=== PATIENT | female | born 1950 | race Caucasian/White ===

== ENCOUNTER → 2019-08-26 13:38 | Outpatient (CLI) | payer MEDICARE, SELFPAY ==
--- NOTE | ~2019-08-26 | XR_ITS ---
EXAMINATION: XR chest 2V EXAM DATE: 08/26/2019 13:53 INDICATION: Cough for 2 weeks. TECHNIQUE: Frontal and lateral projections of the chest obtained and reviewed. Comparison is made to prior examination from 03/12/2017. FINDINGS: Severe chronic hyperinflation. There is a dual lead pacemaker/AICD seen with leads project ing over the expected locations of the right atrial appendage and right ventricle. Previously seen ri t vicente catheter has been removed. The lungs are clear. There are no pleural effusions. The cardi omediastinal silhouette is within normal limits. There is no pneumothorax suspected. The bones and soft tissues are unremarkable. IMPRESSION: 1. No acute cardiopulmonary findings. 2. Hyperinflation. Reviewed, dictated and finalized at location A. HOUSE OPERATOR
== END ==
PROVIDERS: PCP Family Medicine; Visit Provider Physician Assistant
DX: R05 Cough (principal)
CPT/HCPCS: 71046

== ENCOUNTER 2020-01-16 09:57 | Outpatient (CLI) | payer MEDICARE, SELFPAY ==
--- NOTE | ~2020-01-16 | DEXA_ITS ---
Bone Density Report Name: Jaki Zaidi Age: 69 Sex: Female Ethnicity: White Date of : 1950 Indication: osteopenia; height loss; history of glucocorticoids; prior fracture; cancer; hysterectomy; rheumatoid arthritis; Referring Provider: DIDI DICKINSON Study: Bone densitometry was performed. Exam Date: January 16, 2020 Accession number: [id number] Bone Density: Region BMD T-score Z-score Classification AP Spine (L1-L4) 0.929 -1.1 0.9 Osteopenia Femoral Neck (Left) 0.536 -2.8 -1.1 Osteoporosis Total Hip (Left) 0.662 -2.3 -0.9 Osteopenia Total Hip Bilateral Avg 0.669 -2.3 -0.8 Osteopenia Femoral Neck (Right) 0.557 -2.6 -0.9 Osteoporosis Total Hip (Right) 0.675 -2.2 -0.8 Osteopenia World Health Organization criteria for BMD impression classify patients as: Normal (T-score at or above -1.0), Osteopenia (T-score between -1.0 and -2.5), or Osteoporosis (T-score at or below -2.5). 10-year Fracture Risk: FRAX not reported because: Some T-score for Spine Total or Hip Total or Femoral Neck at or below -2.5 Previous Exams: Region Exam Age BMD T-score BMD Change BMD Change Date g/cm2 vs Baseline vs Previous AP Spine(L1-L4) 01/16/2020 69 0.929 -1.1 -0.045(-4.6%)* -0.045(-4.6%)* 10/08/2014 64 0.974 -0.7 Total Hip(Left) 01/16/2020 69 0.662 -2.3 -0.118(-15.1%) -0.118(-15.1%) 10/08/2014 64 0.780 -1.3 Total Hip(Right) 01/16/2020 69 0.675 -2.2 -0.082(-10.9%) -0.082(-10.9%) 10/08/2014 64 0.757 -1.5 *Denotes significance at 95% confidence level, LSC for AP Spine = 0.022 g/cm2, LSC for Total Hip = 0.027 g/cm2 Clinical Information Provided by Patient: Has had a low trauma fracture Has taken Glucocorticoids Has rheumatoid arthritis Has used the following medications: Vitamin D, Calcium Has the following medical conditions: Cancer, Hysterectomy Patient maximum height was 63 Menopause Age: 36 Drinks caffeinated beverages Onset of menses at age 11 Number of children 3 Impression: The patient has established osteoporosis, based on the Left Femoral Neck T-score and the existence of a prior fracture. The patient has risk factors, including: previous fracture, history of glucocorticoid therapy. The BMD for the AP Spine(L1-L4) decreased, changing by -4.6% since the last DXA exam. The BMD for the Total Hip(Left) decreased, changing by -15.1% since the last DXA exam. The BMD for the Total Hip(Right) decreased, changing by -10.9% since the last DXA exam. Disc
== END 2020-01-16 09:58 | disposition home or self-care (01) ==
PROVIDERS: PCP Family Medicine; Visit Provider Physician Assistant
DX: Z78.0 Asymptomatic menopausal state (principal); M85.88 Other specified disorders of bone density and structure, other site; M85.852 Other specified disorders of bone density and structure, left thigh; M85.851 Other specified disorders of bone density and structure, right thigh; M81.0 Age-related osteoporosis without current pathological fracture
CPT/HCPCS: 77080

== ENCOUNTER 2020-05-09 11:47 | Inpatient (IN) | payer MEDICARE, SELFPAY ==
[2020-05-09] VITALS (14 sets, daily range): BP systolic 130–153; BP diastolic 60–81; PULSE 60–91; RESP 14–22; TEMP 36.2–36.9; O2SAT 95–100; BMI 23.2
--- NOTE | ~2020-05-09 | CT_ITS ---
EXAMINATION: CT brain wo con INDICATION: Transient alteration of awareness COMPARISON: None TECHNIQUE: Standard unenhanced head CT. The dose-length product (DLP) was 605.33 mGy-cm. The mA was a djusted according to patient size. Iterative reconstruction technique was employed. FINDINGS: There is no acute intraparenchymal hemorrhage. No evidence of mass lesion. No evidence of a cute infarction. There is mild periventricular and subcortical hypodensity probably related to small vessel ischemic disease. There is mild prominence of the sulci and ventricles related to cerebral atr ophy. Intracranial calcified cerebral atherosclerosis is noted. There are no extra-axial collections. There is no mass effect or midline shift. The orbits and soft tissues are unremarkable. The visuali zed sinuses and mastoid air cells are well aerated. IMPRESSION: 1. No acute intracranial abnormality. 2. Age related findings. Reviewed, dictated and finalized at location A.
--- NOTE | ~2020-05-09 | US_ITS ---
EXAMINATION: US carotid duplex BI DATE: 05/11/2020 12:07 INDICATION: Syncope. Cerebral atherosclerosis. TECHNIQUE: Grayscale, color Doppler, and pulsed Doppler images of the cervical carotid arteries were obtained. The degree of vessel stenosis is placed in one of the following categories: normal, <50%, 5 0-69%, >=70% but less than near-occlusion, near-occlusion, or total occlusion. Note that percent sten osis relative to normal distal artery lumen diameter is indirectly measured from velocity measurement s as described by Ben, et al. Radiology 2003; [id number]:[id number]. COMPARISON: None. FINDINGS: RIGHT: The right common carotid artery (CCA) peak systolic velocity (PSV) is 86 cm/s. The right internal car otid artery (ICA) PSV is 115 cm/s. The right ICA end-diastolic velocity (EDV) is 29 cm/s. The right I CA/CCA PSV ratio is 1.3. Grayscale and color Doppler images yield an estimate of <50% diameter reduct ion from plaque in the ICA. The external carotid artery (ECA) PSV is 80 cm/s. There is antegrade flow in the right vertebral artery. LEFT: The left CCA PSV is 68 cm/s. The left ICA PSV is 97 cm/s. The left ICA EDV is 41 cm/s. The left ICA/C CA PSV ratio is 1.4. Grayscale and color Doppler images yield an estimate of <50% diameter reduction from plaque in the ICA. The ECA PSV is 62 cm/s. There is antegrade flow in the left vertebral artery. IMPRESSION: 1. <50% stenosis in the right internal carotid artery. 2. <50% stenosis in the left internal carotid artery. Reviewed, dictated and finalized at location A. GRAINER
--- NOTE | ~2020-05-09 | XR_ITS ---
EXAMINATION: XR chest 1V INDICATION: Shortness of breath TECHNIQUE: AP view of the chest is obtained. COMPARISON: 08/26/2019 FINDINGS: Cardiomegaly is noted. A dual-lead cardiac pacemaker of the left chest wall ends with leads in expected locations. The lungs are free of acute opacities. There is no pleural effusion or pneumo thorax. IMPRESSION: 1. Cardiomegaly. Reviewed, dictated and finalized at location A. IMPRESSION: 1. Cardiomegaly.
--- NOTE | 2020-05-09 12:15 | ED.SEIZURE ---
HPI - Seizure General Chief Complaint: Seizure Stated Complaint: SEIZURE LIKE ACTIVITY Time Seen by Provider: 05/09/20 12:01 History of Present Illness HPI Narrative: 69 yo female with multiple medical problems brought in from home for LOC. She was sitting on the toilet when she began to feel weak. She lowered her self t the floor and says she does not rememebr what happened after that. Apparently her witnessed what he thought might be seizure activity. When EMS arrived they noted that she was conscious, but treated her for a seizure with 2 doses of versed. Symptoms stopped. No post ictal confusion. She says that she has nt been feeling well recently, but she is not able to tell me how this is different from usual. Related Data Home Medications Medication Instructions Recorded Confirmed aspirin 81 mg tablet,delayed 81 mg PO DAILY 07/30/19 09/03/19 release betamethasone dipropionate 0.05 % 1 applic TOPICAL DAILY 07/30/19 09/03/19 topical ointment ergocalciferol (vitamin D2) 1,000 unit PO 07/30/19 09/03/19 unit capsule ferrous sulfate 325 mg (65 mg 325 mg PO DAILY 07/30/19 09/03/19 iron) tablet vitamin B complex 1 cap PO DAILY 07/30/19 09/03/19 hydroxychloroquine 200 mg tablet 200 mg PO BID 11/13/19 Allergies Allergy/AdvReac Type Severity Reaction Status Date / Time latex Allergy Intermediate hives and Verified 05/09/20 12:06 rash Penicillins Allergy Unknown Nausea and Verified 05/09/20 12:06 Vomiting Sulfa (Sulfonamide Allergy Unknown Nausea and Verified 05/09/20 12:06 Antibiotics) Vomiting sulfanilamide Allergy Unknown Nausea and Verified 05/09/20 12:06 Vomiting Review of Systems Constitutional: Constitutional: Reports fatigue, Denies fever(s) and Reports weakness Cardiovascular: Cardiovascular: Denies chest pain Respiratory: Respiratory: Denies dyspnea Gastrointestinal: Gastrointestinal: Reports abdominal pain, Reports diarrhea and Reports nausea Genitourinary: Genitourinary: Denies dysuria Neurologic: Reports dizziness and Reports weakness PMFSH Past Medical History Medical History COPD (chronic obstructive pulmonary disease) COPD exacerbation SHERRY (generalized anxiety disorder) MARTIN (iron deficiency anemia) Pancreatic cancer Sinus node dysfunction Surgical History Surgical History History of pancreatic surgery s/p Whipple Family History Family History Mother Family history of malignant neoplasm of ovary Other Diabetes mellitus Social History Social History Smoking status: Never smoker Second hand tobacco smoke exposure: No Alcohol intake: current Drinks per week: 2 Substance use: never Substance use type: does not use Gender identity (if verbalized by the patient): Female Exam Const: General: no acute distress and alert Orientation/consciousness: patient oriented x3 HENMT: Head: normal to inspection Resp: Effort & Inspection: normal respiratory effort Auscultation: clear to auscultation bilaterally Cardio: Rate: regular rate Rhythm: regular rhythm GI: GI Palp: Yes Soft to palpation and Yes Tenderness to palpation present (GI) Skin: General skin exam: normal color Neuro: General: patient oriented x3, moves all extremities, no focal motor deficits and CN's II-XI intact bilaterally Speech: normal speech Extrem: General: normal to inspection and no edema Course Vital Signs Vital signs: Vital Signs Temperature 36.2 C L 05/09/20 11:46 Pulse Rate 67 05/09/20 11:46 Respiratory Rate 18 05/09/20 11:46 Blood Pressure 151/81 H 05/09/20 11:46 Pulse Oximetry 100 05/09/20 11:46 Temperature 36.2 C L 05/09/20 11:46 Pulse Rate 69 05/09/20 13:40 Respiratory Rate 19 05/09/20 13:40 B
[2020-05-09] MEDS: SODIUM CHLORIDE 0.9% IV 1,000 ML 999 ML IV CONT (12:23)
--- NOTE | 2020-05-09 12:30 | PC.NURSE ---
Patient refusing straight cath at this time, states I don't have to pee.
[2020-05-09 12:53] LABS: Basophils Percent Auto 0.4 % (0.2-1.2); Eosinophils Absolute Auto 0.1 K/mm3 (0-0.3); Hematocrit 31.9 % (37.0-47.0); Hemoglobin 9.8 g/dL (12.0-15.0); Immature Granulocyte Absolute 0.02 K/mm3 (0.00-0.031); Immature Granulocyte Percent A 0.4 % (0-0.5); Lymphocytes Absolute Auto 0.68 K/mm3 (0.9-3.2); Lymphocytes Percent Auto 14.1 % (18.3-44.2); Mean Corpuscular HGB Conc 30.7 g/dl (32-36); Mean Corpuscular Hemoglobin 27.7 pg (26-34); Mean Corpuscular Volume 90.1 fl (80-100); Monocytes Absolute Auto 0.4 K/mm3 (0.1-0.6); Monocytes Percent Auto 8.9 % (2.6-8.5); Neutrophils Absolute Auto 3.6 K/mm3 (1.3-6.7); Neutrophils Percent Auto 75.2 % (45.5-73.1); Platelet Count Result 158 k/mm3 (150-375); Red Blood Count 3.54 M/mm3 (4.2-5.4); Red Cell Distribution Width 14.8 % (11.5-14.5); White Blood Count 4.8 K/mm3 (4.5-10.0)
[2020-05-09 13:03] LABS: INR 0.9; Prothrombin Time 12.3 Seconds (11.1-14.7)
[2020-05-09 13:04] LABS: Partial Thromboplastin Time 23.7 SECONDS (22.3-36.8)
[2020-05-09 13:06] LABS: Lactic Acid Reflex 3.5 mmol/L (0.7-2.1)
[2020-05-09 13:08] LABS: Alanine Aminotransferase 29 U/L (4-35); Alkaline Phosphatase 46 U/L (38-126); Anion Gap 9 mmol/L (8-16); Aspartate Amino Transferase 35 U/L (14-36); Bilirubin,Total 0.2 mg/dL (0.2-1.3); Blood Urea Nitrogen 18 mg/dL (7-17); Calcium 8.8 mg/dL (8.4-10.2); Carbon Dioxide 28 mmol/L (22-30); Chloride 105 mmol/L (98-107); Estimated CRCL calculation 60 ml/min; Estimated Glomerular Filt Rate > 60; Glucose 136 mg/dL (65-105); Sodium 142 mmol/L (137-145)
--- NOTE | 2020-05-09 13:21 | ECG_ITS ---
Measurements Intervals [place] Rate: 73 P: 160 ND: 180 QRS: 81 QRSD: 99 T: 67 QT: 410 QTc: 453 Interpretive Statements ELECTRONIC ATRIAL PACEMAKER BORDERLINE T WAVE ABNORMALITY- ANTERIOR LEADS BASELINE ARTIFACT- I, II, III, AVR, AVL, AVF, V3-V6 BORDERLINE ECG Electronically Signed On 05-09-2020 13:52:37 CDT by Jacob Encinas D.O.
--- NOTE | 2020-05-09 13:24 | PC.NURSE ---
CALLED TO PATIENTS ROOM VIA FAMILY MEMBER, PATIENT NOTED TO BE HAVING INVOLUNTARY CONVULSION. DR FONG AT BEDSIDE WITH NO NEW ORDERS AT THIS TIME.
--- NOTE | 2020-05-09 14:00 | PM.IMHP ---
H&P: HPI History of Present Illness Date/Time: 05/09/20 14:00 Chief complaint: Seizure-like activity. Narrative: Jaki Zaidi is a 69-year-old female with history of lupus, rheumatoid arthritis, mixed connective tissue disorder, history of pancreatic cancer status post Whipple procedure in 2015, COPD, and anemia who presented to the emergency department earlier today via EMS from home for evaluation of seizure-like activity. Over the last couple of weeks she has felt ?blah? but it sounds as though this is not an unusual thing for her given her autoimmune diseases. She ate breakfast as usual and not long thereafter she had the sudden urge to have a bowel movement. While in the bathroom she passed a loose stool which she states is pretty common for her after eating, but she then began feeling nauseated, diaphoretic and lightheaded. She yelled to her for help, and he helped her onto the floor as she thought she was going to pass out. According to her she then lost consciousness and was noted to have shaking of her upper and lower extremities. It sounds as though Narcan was given on EMS arrival without response. She was given Versed in the ambulance x2 and the seizure activity ceased. In total since this seizure-like activity lasted for approximately 17 minutes. She was not postictal, incontinent, and there was no tongue bite. On 's arrival to the ER, she was alert and oriented x4. She then drifted off to sleep, however sometime during her sleep she reportedly had the same type of seizure-like activity lasting for 3 minutes, again without a postictal state. At the time my evaluation she just feels tired and worn out. She describes a dull aching headache and she has muscle tightness in her shoulders, other than that she has no complaints. She has no history of seizures. She denies significant caffeine and alcohol intake. The only change in medications recently was a decrease in her daily prednisone dose. She denies insomnia and lack of sleep. No head trauma or loss of consciousness. Review of Systems Review of Systems: Narrative: Twelve systems were reviewed with pertinent positives and negatives as per HPI. No vertigo or dizziness. She denies focal weakness and paresthesias. No acute auditory or visual changes. Does have maturing cataracts for which she is followed by an heavy rail train operator. She frequently has rhinorrhea when eating. No cold or flu symptoms. She occasionally has chills and sweats which is not new for her, but she denies head running a fever. Occasional GERD for which she will take famotidine. No cough or shortness of breath. She denies sick contacts. She has diarrhea pretty frequently after eating and has since her Whipple 5 years ago. No blood or mucus in the stool. Except as documented, all other systems were reviewed and are negative. [facility] Past Medical History Medical History (Updated 05/09/20 @ 19:11 by Laura Proctor PA-C) Anxiety Cardiomegaly Chronic obstructive pulmonary disease Iron deficiency anemia Mixed connective tissue disease Osteoporosis Pancreatic cancer Status post Whipple procedure in 2014. Rheumatoid arthritis Sinus node dysfunction Status post pacemaker insertion in February 2019. Systemic lupus erythematosus Surgical History Surgical History (Updated 05/09/20 @ 19:11 by Laura Proctor PA-C) History of bilateral salpingo-oophorectomy (~1997) History of cardiac catheterization (~09/2018) Performed after an abnormal stress test, showing minimal coronary irregularities. History of cardiac pacemaker in situ (~02/2019) History of cholecystectomy (~2014) History of hysterectomy (~1986) History of pancreatic surgery (~2014) Status post Whipple procedure. Family History Family History (Updated 05/09/20 @ 19:06 by Laura Proctor PA-C) Mother Family history of malignant neoplasm of ovary Son Diabetes mellitus Grandparent Diabetes mellitus Son Multiple
--- NOTE | 2020-05-09 15:45 | ADMGEN ---
This patient, Jaki Zaidi, was admitted to Medical Room 247-. Patient/family oriented to hospital policies and general routines including ID bracelet, bed and alarms, visiting hours, pain management, procedures, bathroom and other care routines, personal items, smoking policy, room service/diet, and visiting hours. Information on how to activate the Rapid Response Team has been discussed. Patient/Family are encouraged to report perceived risks to care and to ask questions if they do not understand what they are told or what they should do.
[2020-05-09 15:50] LABS: Reflex Lactic Acid Yes or No Add Lactic
[2020-05-09 16:58] LABS: Lactic Acid Reflex 0.6 mmol/L (0.7-2.1)
[2020-05-09 17:37] LABS: Add Urine Microscopic? YES; Appearance Urine Clear (Clear); Bacteria Urine Trace /hpf; Bilirubin Urine Negative (Negative); Blood Urine Negative (Negative); Color Urine Yellow (Yellow); Glucose Urine UA Negative (Negative); Ketones Urine Negative (Negative); Leukocyte Esterase Ur Trace LEU/UL (Negative); Mucus Urine Rare /lpf; Nitrate Urine Negative (Negative); Protein Urine Negative (Negative); RBC Urine 0-2 /hpf (0-2); Specific Grav Ur 1.012 (1.001-1.035); Squamous Epithelial Cell Urine Rare /hpf (Few); Urobilinogen Urine Negative mg/dL (<2.0)
[2020-05-09] MEDS: LACTATED RINGERS 1,000 ML 60 ML IV CONT (18:13)
[2020-05-09] MEDS: ACETAMINOPHEN 325 MG TABLET 650 MG PO (21:06)
[2020-05-09] MEDS: HYDROXYCHLOROQUINE SULFATE 200 MG TABLET PO (21:07)
[2020-05-10] VITALS (13 sets, daily range): BP systolic 130–156; BP diastolic 60–79; PULSE 60–72; RESP 14–16; TEMP 36.6–37.2; O2SAT 98–100
--- NOTE | 2020-05-10 01:59 | PC.NURSE ---
Daylight Savings Time For Daylight Savings Time Ending in the Fall - Clocks are moved back. For Daylight Savings Time Beginning in the Spring - Clocks are moved ahead. For [facility], the time of change occurs at 0200 hrs. Time is taken from the hot mill observer. This entry on the patient's chart recognizes the change in time reflected during documentation. Example: 2 entries for vital signs may be charted for 0200 hrs.
[2020-05-10 05:37] LABS: Hematocrit 30.2 % (37.0-47.0); Hemoglobin 9.4 g/dL (12.0-15.0); Mean Corpuscular HGB Conc 31.1 g/dl (32-36); Mean Corpuscular Hemoglobin 27.6 pg (26-34); Mean Corpuscular Volume 88.8 fl (80-100); Mean Platelet Volume 9.7 fl (7.4-10.4); Platelet Count Result 152 k/mm3 (150-375); Red Cell Distribution Width 14.9 % (11.5-14.5)
[2020-05-10] MEDS: ACETAMINOPHEN 325 MG TABLET 650 MG PO ×3 (06:00→20:35)
[2020-05-10 06:13] LABS: Alanine Aminotransferase 26 U/L (4-35); Albumin Level 3.5 g/dL (3.5-5.1); Alkaline Phosphatase 46 U/L (38-126); Anion Gap 2 mmol/L (8-16); Aspartate Amino Transferase 34 U/L (14-36); Bilirubin,Total 0.3 mg/dL (0.2-1.3); Blood Urea Nitrogen 10 mg/dL (7-17); Calcium 8.7 mg/dL (8.4-10.2); Carbon Dioxide 33 mmol/L (22-30); Chloride 105 mmol/L (98-107); Estimated CRCL calculation 68 ml/min; Estimated Glomerular Filt Rate > 60; Glucose 98 mg/dL (65-105); Magnesium 2.2 mg/dL (1.6-2.3); Potassium 3.8 mmol/L (3.4-5.0); Sodium 140 mmol/L (137-145)
[2020-05-10] MEDS: ASPIRIN 81 MG CHEWABLE TABLET PO (09:29)
[2020-05-10] MEDS: busPIRone HCL 2.5 MG TABLET PO (09:30)
[2020-05-10] MEDS: CHOLECALCIFEROL 1,000 UNITS TABLET 2000 UNITS PO (09:31)
[2020-05-10] MEDS: busPIRone HCL 5 MG TABLET PO (09:31)
[2020-05-10] MEDS: predniSONE 5 MG TABLET PO (09:32)
[2020-05-10] MEDS: HYDROXYCHLOROQUINE SULFATE 200 MG TABLET PO ×2 (09:32→16:57)
[2020-05-10] MEDS: FERROUS SULFATE 324 MG TABLET PO (09:32)
[2020-05-10] MEDS: ROSUVASTATIN 5 MG TABLET PO (09:32)
[2020-05-10] MEDS: VITAMIN B COMPLEX CAPSULE 1 CAP PO (09:32)
--- NOTE | 2020-05-10 10:19 | WPDNEURCNPN ---
Assessment and Plan Assessment and plan (1) Vasovagal episode: Code(s): R55 - Syncope and collapse Status: Acute Additional Plan vasovagal syncope with seizure-like activity will obtain the EEG in the meantime management continue as such Consult date: 05/10/20 Time Seen: 10:00 HPI: Jaki Zaidi is a 69 year old female Admitted to the [facility] through the emergency room via EMS for the evaluation of seizure-like activity. reportedly patient has not felt well over the last couple of weeks, she ate breakfast as usual and not long thereafter she had the sudden urge to have a bowel movements, while in the bathroom she passed a loose stool then began feeling nauseated, diaphoretic, lightheaded and called her to help who help her onto the floor. At the time she became unconscious and was noted to have shaking of her upper and lower extremities. she receive Narcan by the EMS on arrival without any response. Received Versed in the ambulance x2, and the seizure-like activity ceased the whole episode lasted for about 17 minutes .there was no history of postictal state, incontinence of bladder or tongue biting. by the time her came to the emergency room she was awake alert oriented x4 and then drifted off to sleep but however sometime during her sleep she reportedly had the same type of seizure-like activity lasting for 3 minutes. patient has ongoing history of lupus, rheumatoid arthritis, mixed connective tissue disorder, pancreatic cancer for which she has undergone Whipple procedure in 2014, COPD, and anemia. Review of Systems Review of Systems: All systems reviewed & are unremarkable except as noted in HPI and below PMFSH Past Medical History Medical History (Updated 05/09/20 @ 19:11 by Laura Proctor PA-C) Anxiety Cardiomegaly Chronic obstructive pulmonary disease Iron deficiency anemia Mixed connective tissue disease Osteoporosis Pancreatic cancer Status post Whipple procedure in 2014. Rheumatoid arthritis Sinus node dysfunction Status post pacemaker insertion in February 2019. Systemic lupus erythematosus Surgical History Surgical History (Updated 05/09/20 @ 19:11 by Laura Proctor PA-C) History of bilateral salpingo-oophorectomy (~1997) History of cardiac catheterization (~09/2018) Performed after an abnormal stress test, showing minimal coronary irregularities. History of cardiac pacemaker in situ (~02/2019) History of cholecystectomy (~2014) History of hysterectomy (~1986) History of pancreatic surgery (~2014) Status post Whipple procedure. Family History Family History (Updated 05/09/20 @ 19:06 by Laura Proctor PA-C) Mother Family history of malignant neoplasm of ovary Son Diabetes mellitus Grandparent Diabetes mellitus Son Multiple sclerosis Social History Social History (Updated 05/09/20 @ 19:07 by Laura Proctor PA-C) Social History: Surrogate decision maker: Rafael Zaidi, spouse. Code status: Full code. Smoking status: Never smoker Second hand tobacco smoke exposure: Yes ( for many years) Alcohol intake: current Drinks per week: 2 Substance use: never Substance use type: does not use Additional living arrangements comments: Resides in [place] with her . She has 3 grown children. Additional occupation/education comments: Retired and on disability. Gender identity (if verbalized by the patient): Female Spiritual care concerns: No Meds Home Medications and Allergies Home Medications Medication Instructions Recorded Confirmed Type betamethasone dipropionate 0.05 % 1 applic TOPICAL DAILY PRN 07/30/19 05/09/20 History topical ointment ferrous sulfate 325 mg (65 mg 325 mg PO DAILY 07/30/19 05/09/20 History iron) tablet vitamin B complex 1 cap PO DAILY 07/30/19 05/09/20 History albuterol sulfate 90 mcg/actuation 2 puff INHALATION Q4H PRN #6.7 gm 08/06/19 05/09/20 Rx aerosol i
--- NOTE | 2020-05-10 12:20 | PHAR ---
HOME MEDICATION VERIFIED BY PHARMACY: JOSE LUIS FITZGERALD 100/62.5 MCG INHALER
--- NOTE | 2020-05-10 16:04 | PM.IMPN ---
Progress Note: A&P Assessment and Plan (1) Vasovagal episode: Code(s): R55 - Syncope and collapse Status: Acute Assessment and Plan: vasovagal syncope with seizure-like activity Neurologist was consulted EEG ordered. Unable to get an MRI, due to PPM. Continous cardiac telemetry monitoring. Consulted her Assistant Facility Manager DR. Gates, as her orthostatics did drop some, perhaps a Pacemaker interrogation would give us some clue as to willay she had syncope with collapse. electrolytes stable, Mag 2.2, K 3.8 Na 140 (2) Pancreatic cancer: Code(s): C25.9 - Malignant neoplasm of pancreas, unspecified Status: Acute Assessment and Plan: history of a whipple w/pancreatic cancer approximately 5 years ago chronic loose stools since then BM x 3 today. CBC stable. WBC 3, Hgb 9.4, Hct. 30.2 LFTs are WNL. (3) Lactic acidosis: Code(s): E87.2 - Acidosis Status: Acute Assessment and Plan: resolved Additional Plan Subjective Date/time seen: 05/10/20 16:04 Jaki was resting in bed comfortably. Stated that she was feeling better than when she was admitted. She has been having some loose stools; 3 x today. She has a history of a whipple w/pancreatic cancer approximately 5 years ago. LFTs are WNL. Neurologist was consulted , EEG ordered. Unable to get an MRI, due to PPM. Continous cardiac telemetry monitoring. Consulted her Assistant Facility Manager DR. Gates, as her orthostatics did drop some, and perhaps a Pacemaker interrogation would give us some clue as to willay she had syncope with collapse. Review of Systems Review of Systems: All systems reviewed & are unremarkable except as noted in HPI and below Constitutional: Constitutional: Reports fatigue, Denies fever(s) and Reports weakness Eyes: Eyes: Denies exophthalmos, Denies diplopia, Denies floaters and Denies loss of peripheral vision ENT: Reports dizziness Cardiovascular: Cardiovascular: Denies chest pain and Denies dyspnea Respiratory: Respiratory: Denies dyspnea Gastrointestinal: Gastrointestinal: Reports abdominal pain, Reports diarrhea and Reports nausea Genitourinary: Genitourinary: Denies dysuria Neurologic: Reports dizziness and Reports weakness Endocrine: Endocrine: Reports fatigue Exam Narrative: Exam Narrative: no obvious acute distress head normocephalic with no cranial bruit. Nose throat examination normal. Neck is supple with no cervical bruit no thyromegaly no lymphadenopathy. Heart regular with no murmur. Lungs clear to auscultation with no rhonchi or crepitation. Abdomen is soft with no organomegaly nontender normal bowel sounds. Skin normal. Extremities normal. Neurological examination revealed her to be awake alert oriented x3 symmetrical tongue midline motor examination revealed her to have no drift no evidence of sensory or cerebellar deficit Const: General: no acute distress and alert Orientation/consciousness: patient oriented x3 HENMT: Head: normal to inspection Resp: Effort & Inspection: normal respiratory effort Auscultation: clear to auscultation bilaterally Cardio: Rate: regular rate Rhythm: regular rhythm Skin: General skin exam: normal color Neuro: General: patient oriented x3, moves all extremities, no focal motor deficits and CN's II-XI intact bilaterally Speech: normal speech Extrem: General: normal to inspection and no edema Objective Data Vital Signs Vital Signs: Vital Signs - 24 hr 05/09/20 20:00 05/09/20 21:39 05/09/20 21:40 Temperature 36.8 C 36.8 C 36.8 C Pulse Rate 64 60 63 Respiratory Rate 16 16 18 Blood Pressure 139/64 139/64 130/60 Pulse Oximetry 97 95 100 05/09/20 21:42 05/10/20 00:00 05/10/20 04:00 Temperature 36.8 C Pulse Rate 62 60 61 Respiratory Rate 16 Blood Pressure 148/63 H Pulse Oximetry 98 05/10/20 06:00 05/10/20 08:00 05/10/20 08:05 Temperature 36.6 C Pulse Rate 61 60 62 Respiratory Rate 14 Blood Pressure
[2020-05-11] VITALS (15 sets, daily range): BP systolic 123–148; BP diastolic 45–74; PULSE 60–73; RESP 16–20; TEMP 36.4–37.1; O2SAT 100
--- NOTE | 2020-05-11 | ECHO_ITS ---
Patient Info Name: Jaki Zaidi Age: 69 years : 1950 Gender: Female Ht: 61 in Wt: 122 lbs BSA: 1.55 m2 HR: 61 bpm BP: 137 / 74 mmHg Heart Rhythm: Sinus Rhythm Technical Quality: Good Exam Date: 05/11/2020 11:03 AM Exam Location: [facility] Pulmonary Exam Room: 247 Patient Status: Outpatient Admit Date: 05/09/2020 Staff Ordering Physician: Laura Proctor PA-C Founder Chairman And Chief Creative Officer: Jackelyn Morgan RDCS Attending Provider: Bev Sun NP Referring Physician: Esthela HODGES; Exam Type: CA echo doppler color flow Study Info Indications - PPM CM Complete two-dimensional, color flow and Doppler transthoracic echocardiogram is performed. Strain analysis performed. Summary 1. Complete two-dimensional, color flow and Doppler transthoracic echocardiogram is performed. 2. Strain analysis performed. 3. Left ventricular chamber dimension is normal. 4. Left ventricular systolic function is normal, estimated at 55-60%. 5. There is no increased left ventricular wall thickness. 6. The left ventricular diastolic function is grade I diastolic dysfunction. 7. Global longitudinal strain is normal at -19 %. 8. Left atrial chamber dimension is mildly enlarged. 9. Patent foramen ovale visualized by color flow imaging. 10. There is mild to moderate aortic valve regurgitation. 11. There is mild mitral valve regurgitation. 12. There is mild tricuspid valve regurgitation. 13. Mild pulmonary hypertension, estimated pulmonary arterial systolic pressure is 44 mmHg. 14. There is small pericardial effusion. Left Ventricle Left ventricular chamber dimension is normal. Left ventricular systolic function is normal, estimated at 55-60%. There is no increased left ventricular wall thickness. The left ventricular diastolic function is grade I diastolic dysfunction. Global longitudinal strain is normal at -19 %. Right Ventricle Right ventricular chamber dimension is normal. Right ventricular systolic function is normal. Left Atria Left atrial chamber dimension is mildly enlarged. Right Atria Right atrial chamber dimension is normal. Atrial Septum Patent foramen ovale visualized by color flow imaging. Aortic Valve The aortic valve is trileaflet. There is mild aortic valve sclerosis. There is no aortic valve stenosis. There is mild to moderate aortic valve regurgitation. Pulmonic Valve The pulmonic valve is normal. There is no pulmonic valve stenosis. There is trace pulmonic regurgitation. Mitral Valve The mitral valve has normal leaflets. There is no mitral valve stenosis. There is mild mitral valve regurgitation. Tricuspid Valve The tricuspid valve leaflets are normal. There is no significant tricuspid valve stenosis. There is mild tricuspid valve regurgitation. Mild pulmonary hypertension, estimated pulmonary arterial systolic pressure is 44 mmHg. Pericardium/Pleural The pericardium appears normal. There is small pericardial effusion. Inferior Vena Cava Normal inferior vena cava with >50% collapse upon inspiration consistent with normal right atrial pressure, 5 mmHg. Aorta The aortic root size at the sinus of Valsalva is normal. Left Ventricular Outflow Tract Name Value Normal LVOT 2D
[2020-05-11] MEDS: ROSUVASTATIN 5 MG TABLET PO (08:26)
[2020-05-11] MEDS: CHOLECALCIFEROL 1,000 UNITS TABLET 2000 UNITS PO (08:26)
[2020-05-11] MEDS: predniSONE 5 MG TABLET PO (08:26)
[2020-05-11] MEDS: busPIRone HCL 5 MG TABLET PO (08:26)
[2020-05-11] MEDS: ASPIRIN 81 MG CHEWABLE TABLET PO (08:26)
[2020-05-11] MEDS: busPIRone HCL 2.5 MG TABLET PO (08:26)
[2020-05-11] MEDS: VITAMIN B COMPLEX CAPSULE 1 CAP PO (08:26)
[2020-05-11] MEDS: HYDROXYCHLOROQUINE SULFATE 200 MG TABLET PO ×2 (08:27→16:22)
[2020-05-11] MEDS: FERROUS SULFATE 324 MG TABLET PO (08:27)
--- NOTE | 2020-05-11 11:09 | PM.DS ---
DS: Admitting Diagnosis Admitting Diagnosis Admitting Diagnosis: Seizure-like activity. DS: Summary Time Spent with Patient Time attestation: Total time spent providing and/or coordinating discharge services: Discharge Plan Discharge Consulting providers: Riky Cantu ; Wood Gates Patient Instructions: Pain Management (DC), New-Onset Seizure in Adults (DC) Discharge Medications: No Action albuterol sulfate [Ventolin HFA] 90 mcg/actuation HFA aerosol inhaler 2 puff INHALATION Q4H PRN (Reason: shortness of breath or wheezing) Qty: 6.7 RF: 2 hydroxychloroquine 200 mg tablet 200 mg PO BID RF: 0 betamethasone dipropionate 0.05 % ointment 1 applic TOPICAL DAILY PRN (Reason: Rash) RF: 0 vitamin B complex [Vitamins B Complex] Capsule 1 cap PO DAILY RF: 0 ferrous sulfate [Iron (ferrous sulfate)] 325 mg (65 mg iron) tablet 325 mg PO DAILY RF: 0 Adult Low Dose Aspirin 81 mg Tablet 81 mg PO DAILY RF: 0 citalopram 40 mg tablet 40 mg PO HS RF: 0 buspirone 7.5 mg tablet 7.5 mg PO DAILY RF: 0 cholecalciferol (vitamin D3) 50 mcg (2,000 unit) Capsule 50 mcg PO DAILY RF: 0 prednisone 5 mg tablet 5 mg PO DAILY RF: 0 rosuvastatin 5 mg Tablet 5 mg PO DAILY RF: 0 Trelegy Ellipta 100-62.5-25 mcg blister with device 1 inhalation INHALATION DAILY Qty: 60 RF: 5 alendronate 70 mg tablet 70 mg PO WEEKLY Qty: 12 RF: 1 Date of admission: 05/09/20 14:00 Primary Care Provider: Jordan Hayward Admitting Provider: Lalito Gomes Attending physician on admission: Bev Sun Condition: Stable Quality VTE Prophylaxis VTE prophylaxis: mechanical ordered
--- NOTE | 2020-05-11 11:22 | PM.CNCAR ---
Assessment and Plan Assessment and plan (1) Syncope: Code(s): R55 - Syncope and collapse Status: Acute Assessment and Plan: in my opinion this is clearly a vasovagal episode. She was became diaphoretic, nauseated and lightheaded while going to the bathroom. This is similar to her previous episode. This is likely related to vasodepressor response. There is likely nothing wrong with her device. Will formally interrogate her pacemaker for arrhythmia but I sincerely doubt she has any significant arrhythmic episode causing her event. I also Doubt it was a seizure. echocardiogram is pending. Will review. Encourage fluids. Patient has an MRI compatible pacemaker. She CAN have an MRI if thought necessary. (2) Vasovagal episode: Code(s): R55 - Syncope and collapse Status: Acute (3) Sinus node dysfunction: Code(s): I49.5 - Sick sinus syndrome Status: Acute Assessment and Plan: Status post Medtronic device. Likely discharge later today History of Present Illness History of Present Illness Consult date/time: 05/11/20 11:22 Requesting physician: Bev Sun NP Consult reason: Other (Syncope) Reason For Visit: Seizure-like activity. Narrative: date of service 05/11/2020 Reason for consultation syncope History: Patient is a 69-year-old female with a history of vasovagal syncope. She also has a complicated past history including pancreatic cancer status post Whipple procedure in 2014, lupus, rheumatoid arthritis, mixed connective tissue disease. I have been seeing her for a couple of years and it was found that she had significant chronotropic incompetence. She did undergo permanent pacemaker implantation with a Medtronic device on 02/13/2019. She had been feeling well from a cardiac perspective since that time without any other exertional intolerance is or dizzy spells. She however did have a state of altered mental status on 1030. She states that she was feeling a little weak. She had eaten breakfast and went to the bathroom shortly thereafter. She did have some diarrhea /loose stools. Shortly thereafter she became nauseated, diaphoretic, lightheaded. This felt like her previous symptoms of vasovagal syncope. She yelled out to her who came to the bathroom and helped her down to the floor. Shortly thereafter she started to have significant shaking of her upper arms. The patient remembers the shaking though. She denies any chest pain, paroxysmal nocturnal dyspnea, orthopnea, edema, palpitations. She was treated for seizure-like activity in the ambulance. She supposedly had another episode in the emergency department but no intervention was performed. Review of Systems Review of Systems: All systems reviewed & are unremarkable except as noted in HPI and below Constitutional: Constitutional: Reports fatigue, Reports lethargy and Reports weakness Eyes: Eyes: Denies blurry vision ENT: Reports Normal hearing present Cardiovascular: Cardiovascular: Reports chest pain Respiratory: Respiratory: Denies dyspnea Gastrointestinal: Gastrointestinal: Denies abdominal pain and Reports diarrhea Genitourinary: Genitourinary: Denies flank pain Musculoskeletal: Musculoskeletal: Denies neck pain Integumentary/Breasts: Skin/Breast: Denies dry skin Neurologic: Denies headache(s) and Denies numbness Psychiatric: Psychiatric: Denies anxiety and Denies confusion Endocrine: Endocrine: Denies excessive sweating Hematologic/Lymphatic: Hematologic/Lymphatic: Denies easy bleeding Allergic/Immunologic: Allergic/Immunologic: Denies GI upset with certain foods PMFSH Past Medical History Medical History Anxiety Cardiomegaly Chronic obstructive pulmonary disease Iron deficiency anemia Mixed connective tissue disease Osteoporosis Pancreatic cancer Status post Whipple procedure in 2015. Rheumatoid arthritis
[2020-05-11 11:46] LABS: Hemoglobin A1C 5.2 % (<5.7)
[2020-05-11] MEDS: levETIRAcetam 1000MG/NACL100ML 1,000 MG/100 ML BAG 400 MG IVPB (14:19)
--- NOTE | 2020-05-11 15:09 | PC.NURSE ---
Patient had seizure like activity starting at 1359 per Anna from neurology while patient was receiving her EEG. I arrived to the room at 1402. Dr. Cantu called and orders receive for IV Keppra. EEG continued. She had tremors intermittently and her right side was rigid. She said she could hear us but not respond . She did answer questions when asked. Her hands were numb bilaterally at first and then just occurred with her left hand. Post possible seizure activity patient was still alert and oriented but said she felt very tired. Josefina Styles called me back at 1438 and she was notified about the situation and interventions that occurred.
--- NOTE | 2020-05-11 16:22 | PM.IMPN ---
Progress Note: A&P Assessment and Plan (1) Vasovagal episode: Code(s): R55 - Syncope and collapse Status: Acute Assessment and Plan: vasovagal syncope with seizure-like activity on Monday, patient reported almost having a similar episode before that in springtime when she was struggling to get her grandchid out of a child swing seat, she got that flushed near syncope feeling and stopped struggling to lift the child, and feeling resolved after resting. Neurologist was consulted. EEG ordered. Unable to get an MRI, due to PPM. Continous cardiac telemetry monitoring. Consulted her Auto Damage Insurance Appraiser DR. Gates, as her orthostatics did drop some initially, then repeat orthostats today were stable. perhaps a Pacemaker interrogation would give us some clue as to why she had syncope with collapse. ordered carotid doppler studies electrolytes stable, Mag 2.2, K 3.8 Na 140 (2) Pancreatic cancer: Code(s): C25.9 - Malignant neoplasm of pancreas, unspecified Status: Acute Assessment and Plan: history of a whipple w/pancreatic cancer approximately 5 years ago chronic loose stools since then BM x 2-3 most days CBC stable. WBC 3, Hgb 9.4, Hct. 30.2 LFTs are WNL. (3) Lactic acidosis: Code(s): E87.2 - Acidosis Status: Acute Assessment and Plan: lactic 3.5 then 0.6 resolved Additional Plan Subjective Date/time seen: 05/11/20 16:22 Jaki was sitting up in her chair this morning when I went to examine and speak with her. She was feeling well, alert and oriented x4. Her last known seizure was Monday, with no further s/s seizure. She remembered that she gets a flushed and warm feeling down her body prior to the seizure activity on Monday. Her EEG is pending. Will order a carotid Doppler study today. Order neuro checks Q shift. Appreciate the neurology and cardiology recommendations. She is currently not on Keppra; will have to see what the EEG shows and Neurologist recommendations. Her orthostatic BPs/HR this morning were stable with SBPs 120s and HR 60s. She is anxious to go home today. I told her we would first have to see what the EEG and US show, as well as specialists recommendations. Review of Systems Review of Systems: All systems reviewed & are unremarkable except as noted in HPI and below Constitutional: Constitutional: Reports as per HPI, Denies body ache(s), Denies chills, Denies fever(s), Denies frequent falls, Denies headache(s) and Denies malaise Eyes: Eyes: Reports as per HPI, Denies exophthalmos, Denies diplopia, Denies floaters and Denies loss of peripheral vision ENT: Reports as per HPI and Reports dizziness Cardiovascular: Cardiovascular: Reports as per HPI, Denies chest pain, Denies chest pain at rest, Denies chest pain with activity, Denies dyspnea and Reports other (PPM in place) Comments: feeling a warm flushed sensation prior to syncope Respiratory: Respiratory: Reports as per HPI, Denies chest congestion, Denies cough, Denies pain with cough, Denies dyspnea and Denies wheezing Gastrointestinal: Gastrointestinal: Reports as per HPI, Reports abdominal pain, Denies belching, Denies melena, Reports diarrhea and Reports nausea Genitourinary: Genitourinary: Reports as per HPI and Denies dysuria Musculoskeletal: Musculoskeletal: Reports as per HPI and Reports muscle weakness Integumentary/Breasts: Skin/Breast: Reports as per HPI Neurologic: Reports as per HPI, Reports dizziness and Reports weakness Psychiatric: Psychiatric: Reports as per HPI Endocrine: Endocrine: Reports as per HPI and Reports fatigue Hematologic/Lymphatic: Hematologic/Lymphatic: Reports as per HPI Allergic/Immunologic: Allergic/Immunologic: Reports as per HPI Exam Const: General: cooperative, comfortable, no acute distress and alert; No anxious Orientation/consciousness: patient oriented x3 HENMT: Head: normal to inspection Resp: Effort & Inspection: normal respirat
--- NOTE | 2020-05-11 16:46 | P.NEURO_ITS ---
Neurology EEG Report General Information Date of Study: 05/11/20 TEST eeg DIAGNOSIS seizures CONDITION OF RECORDING Awake and drowsy EEG NUMBER [id number] CLINICAL HISTORY seizure-like activity EEG DESCRIPTION basic resting occipital frequency consists of large amount of low to medium voltage 11 to 13 hertz per second alpha activity admixed with low-voltage 15 to 18 hertz per second beta activity. multiple movement artifacts seen throughout t he tracing.during Drowsiness low-voltage beta activity seen diffusely admixed with waxing and waning posterior alpha rhythm and intermittent 6 to 7 hertz per second theta activity non paroxysmal,non focal, non lateralizing. IMPRESSION no significant abnormalities noted
[2020-05-11] MEDS: levETIRAcetam 500 MG TABLET PO (20:36)
[2020-05-12] VITALS (10 sets, daily range): BP systolic 121–138; BP diastolic 63–70; PULSE 61–71; RESP 16; TEMP 36.3–36.8; O2SAT 99–100
[2020-05-12] MEDS: FERROUS SULFATE 324 MG TABLET PO (09:13)
[2020-05-12] MEDS: HYDROXYCHLOROQUINE SULFATE 200 MG TABLET PO ×2 (09:13→16:18)
[2020-05-12] MEDS: levETIRAcetam 500 MG TABLET PO (09:13)
[2020-05-12] MEDS: predniSONE 5 MG TABLET PO (09:13)
[2020-05-12] MEDS: ROSUVASTATIN 5 MG TABLET PO (09:13)
[2020-05-12] MEDS: VITAMIN B COMPLEX CAPSULE 1 CAP PO (09:13)
[2020-05-12] MEDS: ASPIRIN 81 MG CHEWABLE TABLET PO (09:13)
[2020-05-12] MEDS: CHOLECALCIFEROL 1,000 UNITS TABLET 2000 UNITS PO (09:13)
[2020-05-12] MEDS: busPIRone HCL 2.5 MG TABLET PO (09:13)
[2020-05-12] MEDS: busPIRone HCL 5 MG TABLET PO (09:13)
[2020-05-12] MEDS: ACETAMINOPHEN 325 MG TABLET 650 MG PO (09:16)
--- NOTE | 2020-05-12 10:02 | WPDNEUROPN ---
Progress Note: A&P Assessment and Plan (1) Syncope: Code(s): R55 - Syncope and collapse Status: Acute Additional Plan stable continue the treatment as such as planned Review of Systems Review of Systems: All systems reviewed & are unremarkable except as noted in HPI and below Exam Narrative: Exam Narrative: on examination she continues to be awake alert in no obvious acute distress head normocephalic ear nose throat examination normal neck supple with no cervical bruit no thyromegaly no lymphadenopathy heart regular with no murmur lungs clear with no rhonchi or crepitations abdomen is soft nontender no organomegaly and neuro examination reveals her to be awake alert follows instructions fairly well his speech nor dysphasic no dysarthric not dysphonic cranial nerve examination is normal examination reveals generally decreased strength but no focal motor deficit Objective Data Vital Signs Vital Signs: Vital Signs - 24 hr 05/11/20 12:00 05/11/20 14:15 05/11/20 16:00 Temperature 36.7 C Pulse Rate 72 73 64 Respiratory Rate 20 Blood Pressure 148/74 H Pulse Oximetry 100 05/11/20 20:00 05/11/20 21:58 05/11/20 21:59 Temperature 36.6 C Pulse Rate 60 Respiratory Rate 16 Blood Pressure 129/63 130/58 L 134/64 Pulse Oximetry 100 05/11/20 22:00 05/12/20 00:11 05/12/20 04:06 Temperature 36.6 C Pulse Rate 60 62 66 Respiratory Rate 16 Blood Pressure 129/63 Pulse Oximetry 100 05/12/20 06:00 05/12/20 09:15 05/12/20 09:17 Temperature 36.4 C 36.3 C L Pulse Rate 61 71 67 Respiratory Rate 16 16 Blood Pressure 125/67 138/68 123/64 Pulse Oximetry 99 100 05/12/20 09:19 Temperature Pulse Rate 66 Respiratory Rate Blood Pressure 134/70 Pulse Oximetry Intake/Output Intake/Output: Intake & Output 05/10/20 05/10/20 05/11/20 05/12/20 00:59 23:59 23:59 23:59 Intake Total 1770 590 Output Total 1600 600 Balance 170 -10 Meds/Results Medications: Active Medications Generic Name Dose Route Start Last Admin Trade Name Freq PRN Reason Stop Dose Admin Acetaminophen 650 mg 05/09/20 21:02 05/12/20 09:16 Acetaminophen 325 Mg Tablet PO 650 mg Q4H PRN Administration Pain Albuterol 2 puff 05/09/20 19:17 Albuterol Sulfate (*Sp) Aerosol 1 Puff INHALATION Q4HRT PRN shortness of breath or wheezing Aspirin 81 mg 05/10/20 09:00 05/12/20 09:13 Aspirin 81 Mg Chewable Tablet PO 06/09/20 09:01 81 mg DAILY CORA Administration Buspirone HCl 2.5 mg 05/10/20 09:00 05/12/20 09:13 Buspirone Hcl 2.5 Mg Tablet PO 06/09/20 09:01 2.5 mg DAILY CORA Administration Buspirone HCl 5 mg 05/10/20 09:00 05/12/20 09:13 Buspirone Hcl 5 Mg Tablet PO 5 mg DAILY CORA Administration Citalopram Hydrobromide 40 mg 05/09/20 21:00 Citalopram Hydrobromide 20 Mg Tablet PO HS [facility] Ferrous Sulfate 324 mg 05/10/20 09:00 05/12/20 09:13 Ferrous Sulfate 324 Mg Tablet PO 324 mg DAILY CORA Administration Hydroxychloroquine Sulfate 200 mg 05/09/20 17:00 05/12/20 09:13 Hydroxychloroquine Sulfate 200 Mg Tablet PO 200 mg BID CORA Administration Levetiracetam 500 mg 05/11/20 21:00 05/12/20 09:13 Levetiracetam 500 Mg Tablet PO 500 mg Q12HR CORA Administration Prednisone 5 mg 05/10/20 09:00 05/12/20 09:13 Prednisone 5 Mg Tablet PO 5 mg DAILY CORA Administration Rosuvastatin Calcium 5 mg 05/10/20 09:00 05/12/20 09:13 Rosuvastatin 5 Mg Tablet PO 5 mg DAILY CORA Administration Vitamin B Complex 1 cap 05/10/20 09:00 05/12/20 09:13 Vitamin B Complex Capsule PO 1 cap DAILY CORA Administration Vitamin D 2,000 units 05/10/20 09:00 05/12/20 09:13 Cholecalciferol 1,000 Units Tablet PO 2,000 units DAILY CORA Administration Radiology Results: ITS Impressions Head CT 05/09/20 12:35 IMPRESSION: 1. No acute intracranial abnormality. 2. Age related findings. Chest X
--- NOTE | 2020-05-12 11:33 | PM.PNCARD ---
Progress Note: A&P Assessment and Plan (1) Syncope: Qualifiers: Syncope type: vasovagal syncope Qualified Code(s): R55 - Syncope and collapse Code(s): R55 - Syncope and collapse Status: Acute Assessment and Plan: Vasovagal episode. She was became diaphoretic, nauseated and lightheaded while going to the bathroom. This is similar to her previous episode. This is likely related to vasodepressor response. A [employer]tr[employer] remote transmission was sent 05/11/2020. Her pacemaker is functioning normally as programmed. There were no arrhythmias. Patient has an MRI compatible pacemaker. She CAN have an MRI if thought necessary. May need to be done at [place] as it cannot be done at [place]. (2) Vasovagal episode: Code(s): R55 - Syncope and collapse Status: Acute Assessment and Plan: As above (3) Sinus node dysfunction: Code(s): I49.5 - Sick sinus syndrome Status: Acute Assessment and Plan: Pacemaker functioning normally as above. Additional Plan Seizure activity during EEG yesterday. No arrhythmias noted on the monitor. OK to discharge from cardiac standpoint. See discharge instructions for follow-up. Plan discussed with Dr. Gates [id number] 05/12/2020 Subjective Date/time seen: 05/12/20 11:33 Interval history: Follow-up for: Vasovagal syncope, sick sinus syndrome, MRI compatible pacemaker Date of service: 05/12/2020 Subjective: Denied chest discomfort or shortness of breath. No lightheadedness. Had nausea this morning after medications. Had some seizure activity during EEG that was read as unremarkable. Review of Systems Constitutional: Constitutional: Denies excessive sweating, Reports fatigue and Denies headache(s) Eyes: Eyes: Denies blurry vision ENT: Reports Normal hearing present, Denies headache(s) and Denies neck pain Cardiovascular: Cardiovascular: Denies chest pain and Denies dyspnea Respiratory: Respiratory: Denies dyspnea Gastrointestinal: Gastrointestinal: Denies abdominal pain and Reports nausea Genitourinary: Genitourinary: Denies flank pain Musculoskeletal: Musculoskeletal: Denies neck pain and Denies numbness Integumentary/Breasts: Skin/Breast: Denies dry skin Neurologic: Reports Normal hearing present, Denies confusion, Denies headache(s), Denies numbness and Reports weakness Psychiatric: Psychiatric: Denies anxiety and Denies confusion Endocrine: Endocrine: Denies excessive sweating and Reports fatigue Hematologic/Lymphatic: Hematologic/Lymphatic: Denies easy bleeding Allergic/Immunologic: Allergic/Immunologic: Denies GI upset with certain foods Exam Narrative: Exam Narrative: Awake, alert, oriented. No distress. at bedside. Const: General: comfortable and no acute distress; No confusion Orientation/consciousness: No confusion HENMT: General nose exam: Normal nares present Eyes: Sclera: sclerae normal Neck: Neck: supple and no JVD Resp: Auscultation: clear to auscultation bilaterally Cardio: Rate: regular rate Rhythm: regular rhythm GI: GI Palp: Yes Soft to palpation Auscultation: normal bowel sounds Skin: General skin exam: normal color Neuro: General: No confusion Cranial nerves: Yes Normal hearing present Cognition (Neuro): normal cognition Speech: normal speech Extrem: General: normal to inspection Psych: Affect: normal affect Objective Data Vital Signs Vital Signs: Vital Signs - 24 hr 05/11/20 12:00 05/11/20 14:15 05/11/20 16:00 Temperature 36.7 C Pulse Rate 72 73 64 Respiratory Rate 20 Blood Pressure 148/74 H Pulse Oximetry 100 05/11/20 20:00 05/11/20 21:58 05/11/20 21:59 Temperature 36.6 C Pulse Rate 60 Respiratory Rate 16 Blood Pressure 129/63 130/58 L 134/64 Pulse Oximetry 100 05/11/20 22:00 05/12/20 00:11 05/12/20 04:06 Temperature
--- NOTE | 2020-05-12 16:07 | PM.DS ---
DS: Admitting Diagnosis Admitting Diagnosis Admitting Diagnosis: Seizure-like activity. DS: Discharge Diagnosis Discharge Diagnosis (1) Seizure-like activity: Code(s): R56.9 - Unspecified convulsions Status: Acute Assessment and Plan: Discharge Summary (Date of service 05/12/20): Mrs. Zaidi is a 69 y.o. female with PMH significant for COPD, pancreatic cancer s/p Whipple procedure in 2014, systemic lupus erythematosus, rheumatoid arthritis, and COPD who presented to the emergency department for the evaluation of syncopal episode and seizure-like activity. She reported that she ate breakfast and subsequently had the urge to have a bowel movement. She had a loose stool and subsequently felt nauseous, diaphoretic, and lightheaded. She called for her to help because she felt the urge to pass out. The patient reportedly had seizure-like activity per her with shaking of the upper and lower extremities. She was given versed in the ambulance x2 and the seizure activity ceased. She was brought to the emergency department via EMS. She had no post-ictal confusion, urinary or bowel incontinence, or tongue biting. She reportedly had another episode in the ER. Initial workup in the emergency department included CT brain which showed no evidence of acute intracranial abnormality and age-related findings. Lactic acid was elevated at 3.5. She has chronic anemia and Hb was 9.8 and Hct 31.9. She had a subsequent episode of the seizure-like activity Monday at 1359 during her EEG. She had tremors of the right side with rigidity and reportedly was still alert but unable to respond. Dr. Cantu with neurology was called and ordered IV keppra and recommended PO keppra. EEG was continued. The EEG was read by neurology as no significant abnormalities. There were multiple motion artifacts noted. The activity was non-paroxysmal, non-focal, and non-lateralizing. MRI was recommended for further evaluation but could not be performed here since she has a pacemaker. Her pacemaker is MRI compatible so I discussed that she can have this done at an institution that will perform MRI with pacemaker since it cannot be done at [place]. She was advised to follow-up with Dr. Cantu to have this accomplished. She will need close neurology follow-up. She was advised that she cannot drive due to concern for seizures. (2) Syncope: Qualifiers: Syncope type: vasovagal syncope Qualified Code(s): R55 - Syncope and collapse Code(s): R55 - Syncope and collapse Status: Acute Assessment and Plan: Syncope appeared to be vasovagal with precipitating diaphoresis, nausea, and lightheadedness while going to the bathroom. She had a similar episode prior. Cardiology and neurology were consulted. Pacemaker interrogation was performed and was functioning normally as programmed. She had no evidence of arrhythmias. Echocardiogram was performed and showed normal LV systolic function of 55-60%, grade I diastolic dysfunction, mild left atrial enlargement, patent foramen ovale, mild to moderate aortic valve regurgitation, mild mitral valve regurgitation, mild tricuspid regurgitation, and mild pulmonary hypertension with pressure 44mmHg and small pericardial effusion. Carotid doppler US showed <50% stenosis of the ICA bilaterally. Telemetry was monitored and showed paced sinus rhythm. Cardiology recommend outpatient follow-up. Fall precautions were advised and neurology treated her with keppra due to concern for seizures. (3) Vasovagal episode: Code(s): R55 - Syncope and collapse Status: Acute Assessment and Plan: As above. (4) Pancreatic cancer: Code(s): C25.9 - Malignant neoplasm of pancreas, unspecified Status: Chronic Assessment and Plan: She reports a hx of a pancreatic cancer s/p Whipple approximately 5 years ago. She has chronic loose stools since then. She will need to continue follow-up outpatient wi
== END 2020-05-12 16:40 | disposition home or self-care (01) | DRG 101 ==
LOC: ANHED 14:24 → ANH2MED 14:55
PROVIDERS: Nurse Practitioner; Physician Assistant; Admitting Provider Internal Medicine; Emergency Provider Emergency Medicine; PCP Family Medicine; Visit Provider Physician Assistant
DX: R56.9 Unspecified convulsions (principal); E87.2 Acidosis; M35.1 Other overlap syndromes; R55 Syncope and collapse; J44.9 Chronic obstructive pulmonary disease, unspecified; F41.1 Generalized anxiety disorder; D50.9 Iron deficiency anemia, unspecified; M06.9 Rheumatoid arthritis, unspecified; M32.9 Systemic lupus erythematosus, unspecified; M81.0 Age-related osteoporosis without current pathological fracture; Z85.07 Personal history of malignant neoplasm of pancreas; R03.0 Elevated blood-pressure reading, without diagnosis of hypertension; Z90.49 Acquired absence of other specified parts of digestive tract; Z90.710 Acquired absence of both cervix and uterus; Z90.722 Acquired absence of ovaries, bilateral; Z90.79 Acquired absence of other genital organ(s); Z95.0 Presence of cardiac pacemaker
CPT/HCPCS: 36415; 70450; 71045; 80053; 81001; 83036; 83605; 83735; 84443; 85025; 85027; 85610; 85730; 93005; 93306; 93880; 95816; 96360; 96361; 96374; 97161; 97165; 99285; A9270; G0378; J1953; J7030; J7120; J7512

== ENCOUNTER 2021-01-29 10:45 | Outpatient (CLI) | payer MEDICARE, SELFPAY ==
--- NOTE | ~2021-01-29 | CT_ITS ---
EXAMINATION: CT abdomen pelvis wo/w con DATE: 01/29/2021 11:23 INDICATION: Generalized abdominal pain. Nausea, constipation, diarrhea History of pancreatic cancer. TECHNIQUE: Computed tomography (CT) of the abdomen and pelvis was performed with 100 cc Omnipaque 350 intravenous contrast. Automated exposure control and iterative reconstruction technique were employe d. Exam dose: 443.46 mGy-cm total exam DLP. COMPARISON: 06/25/2015 Limited abdominal ultrasound 05/14/2012 CTA abdomen pelvis FINDINGS: Pacemaker lead in right ventricular apex. Heart size appears within normal range. No perica rdial or pleural effusion. The lung bases are clear of infiltrate or consolidation. There is postoperative change from Whipple procedure (pancreaticoduodenotomy). The gallbladder appears to be absent. No bile duct or pancreatic duct dilatation. No hepatic, splenic, pancreatic, and adrenal or renal space-occupying mass lesion is detected. There is atherosclerotic calcification of the abdominal aorta and iliac arteries but no abdominal aor tic aneurysm. No intraperitoneal or retroperitoneal or pelvic mass lesion or adenopathy or ascites is evident. There is mild colonic diverticulosis; no CT evidence of diverticulitis. No bowel obstruction is evide nt. There is degenerative change at the apophyseal joints with associated grade 1 anterolisthesis at L4-5 . There is severe degenerative disc disease at L5-S1. Diffuse osteopenia. No suspicious osteolytic or osteoblastic lesions are identified. IMPRESSION: Status post Whipple procedure for pancreatic cancer Mild colonic diverticulosis; no CT evidence of diverticulitis Reviewed, dictated and finalized at [facility]. Reviewed, dictated and finalized at location [facility].
== END 2021-01-29 10:46 | disposition home or self-care (01) ==
PROVIDERS: PCP Family Medicine; Visit Provider Nurse Practitioner Family
DX: R10.9 Unspecified abdominal pain (principal); Z85.07 Personal history of malignant neoplasm of pancreas; K92.1 Melena; D64.9 Anemia, unspecified; Z90.49 Acquired absence of other specified parts of digestive tract; K57.90 Diverticulosis of intestine, part unspecified, without perforation or abscess without bleeding
CPT/HCPCS: 74178; Q9967

== ENCOUNTER → 2021-05-28 02:40 | Outpatient (CLI) | payer MEDICARE, SELFPAY ==
[2021-05-28 16:36] LABS: SARS-CoV-2 RNA PCR Negative
== END ==
PROVIDERS: PCP Family Medicine; Visit Provider Nurse Practitioner Family
DX: R68.89 Other general symptoms and signs (principal); Z20.822 Contact with and (suspected) exposure to COVID-19
CPT/HCPCS: C9803; U0003; U0005

== ENCOUNTER 2021-06-15 13:38 | Outpatient (CLI) | payer MEDICARE, SELFPAY ==
--- NOTE | ~2021-06-15 | XR_ITS ---
EXAMINATION: XR chest 2V DATE: 06/15/2021 14:00 INDICATION: 6 weeks of cough TECHNIQUE: PA and lateral views of the chest were obtained. COMPARISON: Chest radiograph dated 05/09/2020 FINDINGS: The lungs remain clear with no focal airspace opacities, pulmonary edema, pleural effusion or pneumot horax. The cardiomediastinal silhouette is normal. Dual lead pacemaker seen with leads projecting ove r the expected locations of the right atrium and right ventricle. IMPRESSION: 1. No acute cardiopulmonary disease. Reviewed, dictated and finalized at location [facility]. TING ENGINE OPERATOR
== END 2021-06-15 13:39 | disposition home or self-care (01) ==
PROVIDERS: PCP Family Medicine; Visit Provider Nurse Practitioner Family
DX: R05.9 Cough, unspecified (principal)
CPT/HCPCS: 71046

== ENCOUNTER 2021-07-14 08:14 | Outpatient (CLI) | payer MEDICARE, SELFPAY ==
--- NOTE | 2021-07-19 13:41 | WPDPFTINT ---
PFT Procedure Performed PFT Procedure Performed Spirometry with Pre/Post Bronchodilator Plethysmography (Lung Vol) Diffusing Cap (DLCO) Flow Vol Loop PFT Interpretation DOS: 06/13/2022 REQUESTING: TANYA Bowling REASON FOR TESTING: COPD PULMONARY FUNCTION TESTS Results are reliable and reproducible. Spirometry: FEV1 before bronchodilator shows a normal result, 118% predicted, 2.38 L. FVC is 120% predicted. The FEV1/FVC is 77%, normal. There is no change after bronchodilator. Lung volumes: Total lung capacity is 106%, normal. Residual volume 88%. RV/TLC is within normal limits. Airway resistance 55%. Diffusion: DLCO is 74%, and DLCO/VA is 80%. Flow volume loop: Normal. IMPRESSION: This full pulmonary function study shows normal spirometry without airflow obstruction, normal lung volumes with a mild diffusion impairment. Compared to a prior study on 06/23/2017, spirometry is the same, there was hyperinflation on the prior study with a total lung capacity of 123% and now this is 106%, normal. Diffusion was normal 102% and now it is decreased 74%. This may not be a significant finding. A decrease in DLCO can be seen in anemia, early interstitial lung disease and other conditions. Clinical correlation advised. Kiesha Bingham MD
== END 2021-07-14 08:15 | disposition home or self-care (01) ==
PROVIDERS: PCP Family Medicine; Visit Provider Nurse Practitioner Family
DX: J44.9 Chronic obstructive pulmonary disease, unspecified (principal)
CPT/HCPCS: 94060; 94726; 94729

== ENCOUNTER 2021-11-03 10:26 | Emergency (ER) | payer MEDICARE, SELFPAY ==
--- NOTE | ~2021-11-03 | CT_ITS ---
EXAMINATION: CT abdomen pelvis w con DATE: 11/03/2021 12:13 INDICATION: Generalized abdominal pain. TECHNIQUE: Computed tomography (CT) of the abdomen and pelvis was performed with 100 mL Omnipaque 350 intravenous contrast. Automated exposure control and iterative reconstruction technique were employe d. The dose-length product was 168.10 mGy-cm. COMPARISON: CT abdomen and pelvis 01/29/2021 FINDINGS: The visualized portions of the lung bases demonstrate mild atelectasis. No pleural effusion . The heart size is normal. No pericardial effusion. There is a left chest wall pacer with leads in t he right atrium and right ventricle. There is mild pectus excavatum. The liver is normal. There are c hanges of Whipple procedure. The spleen, adrenal glands, and kidneys are normal. There is diverticulo sis of the colon without evidence of diverticulitis. There are no dilated loops of bowel. The appendi x is normal. There are no pathologically enlarged lymph nodes. There is no free intraperitoneal fluid . There is moderate lumbar spondylosis. IMPRESSION: 1. No etiology for the patient's symptoms. Reviewed, dictated and finalized at location [facility].
[2021-11-03 10:28] VITALS: BP 124/92; PULSE 65; RESP 16; TEMP 36.5; O2SAT 100
[2021-11-03 10:57] LABS: Basophils Percent Auto 0.2 % (0.2-1.2); Eosinophils Absolute Auto 0.1 K/mm3 (0-0.3); Hematocrit 35.7 % (37.0-47.0); Hemoglobin 10.5 g/dL (12.0-15.0); Immature Granulocyte Absolute 0.02 K/mm3 (0.00-0.031); Immature Granulocyte Percent A 0.5 % (0-0.5); Lymphocytes Absolute Auto 0.93 K/mm3 (0.9-3.2); Mean Corpuscular HGB Conc 29.4 g/dl (32-36); Mean Corpuscular Hemoglobin 26.5 pg (26-34); Mean Corpuscular Volume 90.2 fl (80-100); Mean Platelet Volume 9.7 fl (7.4-10.4); Monocytes Absolute Auto 0.5 K/mm3 (0.1-0.6); Monocytes Percent Auto 11.7 % (2.6-8.5); Neutrophils Absolute Auto 2.9 K/mm3 (1.3-6.7); Neutrophils Percent Auto 64.6 % (45.5-73.1); Platelet Count Result 197 k/mm3 (150-375); Red Blood Count 3.96 M/mm3 (4.2-5.4); Red Cell Distribution Width 17.5 % (11.5-14.5); White Blood Count 4.4 K/mm3 (4.5-10.0)
[2021-11-03 11:09] VITALS: PULSE 66; RESP 18; O2SAT 98
[2021-11-03 11:11] LABS: Hypochromasia 1+ (NORMAL); Ovalocytes 1+ (NORMAL); Platelet Estimate Adequate (Adequate)
[2021-11-03 11:12] LABS: Burr Cells 1+ (NORMAL)
--- NOTE | 2021-11-03 11:15 | PC.NURSE ---
machine set up technician [facility].
[2021-11-03 11:17] LABS: Add Urine Microscopic? NO; Appearance Urine Clear (Clear); Bilirubin Urine Negative (Negative); Blood Urine Negative (Negative); Color Urine Yellow (Yellow); Glucose Urine UA Negative (Negative); Ketones Urine Negative (Negative); Leukocyte Esterase Ur Negative LEU/UL (Negative); Nitrate Urine Negative (Negative); Protein Urine Negative (Negative); Specific Grav Ur 1.016 (1.001-1.035); Urobilinogen Urine Negative mg/dL (<2.0)
[2021-11-03 11:34] LABS: Alanine Aminotransferase 20 U/L (4-35); Albumin Level 4.4 g/dL (3.5-5.1); Alkaline Phosphatase 59 U/L (38-126); Anion Gap 7 mmol/L (8-16); Aspartate Amino Transferase 29 U/L (14-36); Bilirubin,Total < 0.1 mg/dL (0.2-1.3); Blood Urea Nitrogen 14 mg/dL (7-17); Carbon Dioxide 26 mmol/L (22-30); Chloride 107 mmol/L (98-107); Estimated CRCL calculation 59 ml/min; Estimated Glomerular Filt Rate > 60; Glucose 99 mg/dL (65-110); Lipase 21 U/L (23-300); Potassium 4.5 mmol/L (3.4-5.0); Sodium 140 mmol/L (137-145)
[2021-11-03] MEDS: ONDANSETRON INJ 4 MG/2 ML VIAL IV PUSH (11:53)
[2021-11-03] MEDS: fentaNYL CITRATE INJ (*CRX) 100 MCG/2 ML VIAL 50 MCG IV PUSH (11:53)
[2021-11-03] MEDS: SODIUM CHLORIDE 0.9% IV 1,000 ML 999 ML IV CONT (11:53)
--- NOTE | 2021-11-03 12:05 | PC.NURSE ---
Pt to ct VIA stretcher
--- NOTE | 2021-11-03 12:06 | ED.ABDPAIN ---
HPI - Abdominal Pain General Chief Complaint: Abdominal Pain Stated Complaint: abd pain Time Seen by Provider: 11/03/21 11:04 Source: patient Mode of arrival: ambulatory Limitations: no limitations History of Present Illness HPI narrative: Pt is a 71 y/o female, PMHx of pancreatic cancer and cardiomyoathy, S/P pacemaker in place, presents to ED via POV with C/O diffuse abdominal cramping, nausea with dry heaves and diarrhea, several episodes each day, onset 4 days ago. She endorses chills and hot flashes but states she has checked her temperature and has not had a fever. She denies hematemesis, hematochezia or melena. She felt she might have a GI bug but denies known sick contacts, recent abx therapy or recent travel. MD elicited complaint: abdominal pain Pertinent past history: other (refer to HPI) Onset (ago): day(s) (4) Pain Consistency: intermittent Location: diffuse Severity: moderate Pain scale (0-10): 6 Radiation: none Migration to: no migration Exacerbating factors: eating Relieving factors: bowel movement Associated symptoms: nausea and diarrhea Related Data Home Medications Medication Instructions Recorded Confirmed betamethasone dipropionate 0.05 % 1 applic TOPICAL DAILY PRN 07/30/19 11/03/21 topical ointment vitamin B complex 1 cap PO DAILY 07/30/19 11/03/21 hydroxychloroquine 200 mg tablet 200 mg PO BID 11/13/19 11/03/21 aspirin 81 mg PO DAILY 05/09/20 11/03/21 cholecalciferol (vitamin D3) 50 mcg PO DAILY 05/09/20 11/03/21 ferrous sulfate 325 mg (65 mg 325 mg PO .every other day tablet 01/19/21 11/03/21 iron) tablet Allergies Allergy/AdvReac Type Severity Reaction Status Date / Time latex Allergy Intermediate hives and Verified 06/15/21 12:57 rash Penicillins Allergy Unknown Nausea and Verified 06/15/21 12:57 Vomiting Sulfa (Sulfonamide Allergy Unknown Nausea and Verified 06/15/21 12:57 Antibiotics) Vomiting sulfanilamide Allergy Unknown Nausea and Verified 06/15/21 12:57 Vomiting Review of Systems Cardiovascular: Cardiovascular: Reports no additional cardiovascular complaints Respiratory: Respiratory: Reports no additional respiratory complaints Gastrointestinal: Gastrointestinal: Reports as per [facility] Past Medical History Medical History Anxiety Cardiomegaly Chronic obstructive pulmonary disease Iron deficiency anemia Mixed connective tissue disease Osteoporosis Pancreatic cancer Status post Whipple procedure in 2014. Rheumatoid arthritis Sinus node dysfunction Status post pacemaker insertion in February 2019. Systemic lupus erythematosus Surgical History Surgical History History of bilateral salpingo-oophorectomy (~1997) History of cardiac catheterization (~09/2018) Performed after an abnormal stress test, showing minimal coronary irregularities. History of cardiac pacemaker in situ (~02/2019) History of cholecystectomy (~2014) History of hysterectomy (~1986) History of pancreatic surgery (~2014) Status post Whipple procedure. Family History Family History Mother Family history of malignant neoplasm of ovary Son Diabetes mellitus Grandparent Diabetes mellitus Son Multiple sclerosis Social History Social History Social History: Surrogate decision maker: Rafael Zaidi, spouse. Code status: Full code. Smoking status: Never smoker Second hand tobacco smoke exposure: Yes ( for many years) Alcohol intake: current Drinks per week: 2 Alcohol use details: rare Substance use: never Substance use type: does not use Additional living arrangements comments: Resides in [place] with her . She has 3 grown children. Additional occupation/education comments: Retired and on disability.
--- NOTE | 2021-11-03 12:27 | PC.NURSE ---
Pt given BSC with hat for stool sample collection.
[2021-11-03 12:46] VITALS: BP 155/72; PULSE 61; RESP 18; O2SAT 98
[2021-11-03 13:37] VITALS: BP 126/78; PULSE 78; RESP 18; O2SAT 98
[2021-11-03 14:23] VITALS: BP 122/78; PULSE 61; RESP 16; O2SAT 98
--- NOTE | 2021-11-03 14:23 | PC.NURSE ---
Pt unable to provide stool specimen during ER visit, Send home with stool cup.
== END 2021-11-03 14:24 | disposition home or self-care (01) ==
PROVIDERS: Emergency Medicine; Emergency Provider Nurse Practitioner Family; PCP Family Medicine
DX: R19.7 Diarrhea, unspecified (principal); J44.9 Chronic obstructive pulmonary disease, unspecified; D50.9 Iron deficiency anemia, unspecified; M06.9 Rheumatoid arthritis, unspecified; M81.0 Age-related osteoporosis without current pathological fracture; M32.9 Systemic lupus erythematosus, unspecified; M35.1 Other overlap syndromes; I51.7 Cardiomegaly; I42.9 Cardiomyopathy, unspecified; Z85.07 Personal history of malignant neoplasm of pancreas; Z79.82 Long term (current) use of aspirin; Z95.0 Presence of cardiac pacemaker
CPT/HCPCS: 36415; 74177; 80053; 81003; 83690; 85025; 99284; J2405; J3010; J7030; Q9967

== ENCOUNTER 2022-01-20 10:34 | Outpatient (CLI) | payer MEDICARE, SELFPAY ==
--- NOTE | ~2022-01-20 | MM_ITS ---
EXAMINATION: MM screening [facility] BI w [place] HISTORY: Screening mammogram TECHNIQUE: Craniocaudal and mediolateral oblique 3-D tomosynthesis images were obtained and synthetic 2-D images were generated. CAD analysis was submitted and interpreted. COMPARISON: 06/18/2019, 03/29/2017, 10/08/2014 BREAST PARENCHYMAL COMPOSITION: There are scattered areas of fibroglandular density. FINDINGS: There is no suspicious mass, calcification, or architectural distortion to suggest malignan cy in either breast. There has been no suspicious interval change. IMPRESSION: 1. No mammographic evidence of malignancy. 2. Recommend routine screening mammography in one year. BI-RADS Category 1: Negative Reviewed, dictated and finalized at location A.
== END 2022-01-20 10:35 | disposition home or self-care (01) ==
PROVIDERS: PCP Family Medicine; Visit Provider Physician Assistant
DX: Z12.31 Encounter for screening mammogram for malignant neoplasm of breast (principal)
CPT/HCPCS: 77063; 77067

== ENCOUNTER 2022-05-18 11:44 | Outpatient (CLI) | payer MEDICARE, SELFPAY ==
--- NOTE | ~2022-05-18 | XR_ITS ---
XR chest 2V DATE: 05/18/2022 12:10 INDICATION: Dyspnea. COPD. TECHNIQUE: PA and lateral views COMPARISON: 06/15/2021 PA and lateral chest FINDINGS: There is osteopenia. There is mild anterior wedge compression fracture deformity of a thora columbar vertebral body. Left-sided pacemaker device with leads overlying right atrium and right ventricle. Normal heart size. Aortic arch and descending thoracic aortic calcification.. Bilateral hyperinflation with increased retrosternal airspace, suggesting obstructive airways disease . No pulmonary infiltrate or consolidation, pleural effusion or pulmonary vascular congestion or pneu mothorax. IMPRESSION: Bilateral hyperinflation; no active cardiopulmonary disease Left dual-lead pacemaker Mild anterior wedge compression fracture deformity of a thoracolumbar vertebral body Reviewed, dictated and finalized at location A. JOINER
== END 2022-05-18 11:45 | disposition home or self-care (01) ==
PROVIDERS: PCP Family Medicine; Visit Provider Family Medicine
DX: R06.00 Dyspnea, unspecified (principal); Z95.0 Presence of cardiac pacemaker
CPT/HCPCS: 71046

== ENCOUNTER 2022-08-17 15:35 | Emergency (ER) | payer MEDICARE, SELFPAY ==
[2022-08-17] VITALS (23 sets, daily range): BP systolic 112–150; BP diastolic 50–96; PULSE 60–73; RESP 13–31; TEMP 36.4–36.7; O2SAT 95–100
--- NOTE | ~2022-08-17 | XR_ITS ---
EXAMINATION: XR chest 2V DATE: 08/17/2022 17:50 INDICATION: 3 days of fever with nausea, vomiting and diarrhea. TECHNIQUE: PA and lateral views of the chest were obtained. COMPARISON: Chest radiograph dated 05/18/2022 FINDINGS: The lungs are clear with no focal airspace opacities, pulmonary edema, pleural effusion or pneumothor ax. The cardiomediastinal silhouette is normal. Dual lead pacemaker seen with leads projecting over t he expected locations of the right atrium and right ventricle. Chronic L1 compression fracture. IMPRESSION: 1. No acute cardiopulmonary disease. Reviewed, dictated and finalized at location A. NICAL CABLE JOINTER
--- NOTE | ~2022-08-17 | CT_ITS ---
EXAMINATION: CT abdomen pelvis w con DATE: 08/17/2022 18:47 INDICATION: Epigastric abdominal pain. TECHNIQUE: Computed tomography (CT) of the abdomen and pelvis was performed with 100 mL Omnipaque-350 intravenous contrast. Automated exposure control and iterative reconstruction technique were employe d. The dose-length product was 196.76 mGy-cm. COMPARISON: 11/03/2021 FINDINGS: Mild atelectasis at the anterior left lower lobe. Mild pectus excavatum which impress upon the anteri or wall of the normal sized heart. No pericardial effusion. Dual-lead cardiac pacemaker with lead tip s at the apex of the right ventricle and projecting over the expected location of the right atrial ap pendage on the tire worker topogram. Whipple procedure including resection of the gallbladder, head of the pancreas, duodenum and distal stomach with pancreaticoduodenal and gastrojejunal anastomoses. Liver, spleen, bilateral adrenal glands and kidneys are normal. Normal appendix. There are few diverticula a long the sigmoid colon without adjacent inflammatory stranding to suggest diverticulitis. No bowel ob struction. Bladder is normal. The uterus is not identified and has likely been surgically resected. N o free intraperitoneal gas or fluid. No pathologically enlarged abdominal or pelvic lymphadenopathy. Chronic T12 compression fracture with 20% anterior vertebral body height loss, new since 11/03/2021 bu t present on chest radiograph dated 05/28/2022. Unchanged 5 mm anterolisthesis L4 on L5 and severe di sc height loss at L5-S1. IMPRESSION: 1. No acute intra-abdominal/pelvic process. 2. Status post Whipple procedure for reported pancreatic cancer. No evident metastatic disease. Reviewed, dictated and finalized at location A. TENANCE MACHINE REPAIRER IMPRESSION: 1. No acute intra-abdominal/pelvic process. 2. Status post Whipple procedure for reported pancreatic cancer. No evident met astatic disease.
--- NOTE | 2022-08-17 15:47 | ECG_ITS ---
Measurements Intervals [place] Rate: 71 P: 54 VA: 129 QRS: 72 QRSD: 90 T: 7 QT: 333 QTc: 362 Interpretive Statements SINUS RHYTHM NONSPECIFIC ST & T-WAVE ABNORMALITY COMPARED TO ECG 05/09/2020 11:57:04 SINUS RHYTHM NOW PRESENT T-WAVE ABNORMALITY NOW PRESENT Electronically Signed On 08-17-2022 16:20:47 TRAINING AND DEVELOPMENT ASSISTANT by Brunilda Gillis M.D.
[2022-08-17 15:59] LABS: Basophils Percent Auto 0.4 % (0.2-1.2); Eosinophils Percent Auto 0.7 % (0-4.4); Hematocrit 36.6 % (37.0-47.0); Hemoglobin 11.4 g/dL (12.0-15.0); Immature Granulocyte Absolute 0.01 K/mm3 (0.00-0.031); Immature Granulocyte Percent A 0.2 % (0-0.5); Lymphocytes Absolute Auto 0.59 K/mm3 (0.9-3.2); Lymphocytes Percent Auto 10.8 % (18.3-44.2); Mean Corpuscular HGB Conc 31.1 g/dl (32-36); Mean Corpuscular Hemoglobin 27.7 pg (26-34); Mean Corpuscular Volume 88.8 fl (80-100); Mean Platelet Volume 9.6 fl (7.4-10.4); Monocytes Absolute Auto 0.8 K/mm3 (0.1-0.6); Monocytes Percent Auto 14.3 % (2.6-8.5); Neutrophils Percent Auto 73.6 % (45.5-73.1); Platelet Count Result 167 k/mm3 (150-375); Red Blood Count 4.12 M/mm3 (4.2-5.4); Red Cell Distribution Width 15.1 % (11.5-14.5); White Blood Count 5.4 K/mm3 (4.5-10.0)
[2022-08-17 16:10] LABS: INR 0.9; Partial Thromboplastin Time 26.2 SECONDS (22.3-36.8); Prothrombin Time 12.1 Seconds (11.1-14.7)
[2022-08-17 16:13] LABS: Alanine Aminotransferase 31 U/L (6-35); Albumin Level 4.3 g/dL (3.5-5.1); Alkaline Phosphatase 63 U/L (38-126); Anion Gap 9 mmol/L (8-16); Aspartate Amino Transferase 39 U/L (14-36); Bilirubin,Total 0.5 mg/dL (0.2-1.3); Blood Urea Nitrogen 21 mg/dL (7-17); Calcium 8.6 mg/dL (8.4-10.2); Carbon Dioxide 26 mmol/L (22-30); Chloride 99 mmol/L (98-107); Estimated CRCL calculation 51 ml/min; Estimated Glomerular Filt Rate > 60; Glucose 95 mg/dL (65-110); Lipase 31 U/L (23-300); Potassium 3.4 mmol/L (3.4-5.0); Sodium 134 mmol/L (137-145)
--- NOTE | 2022-08-17 17:44 | ED.NAVMDI ---
HPI - Nausea/Vomiting/Diarrhea General Chief complaint: Nausea/Vomiting/Diarrhea Stated complaint: vomiting Time Seen by Provider: 08/17/22 17:26 History of Present Illness HPI Narrative: Patient is a 71-year-old with a history of pancreatic ca s/p whipple (2015), sinus node dysfunction s/p pacemaker (2019), lupus, here for evaluation of nausea, vomiting and diarrhea over the past 3 days. Patient states that she was at a child's birthday alliance party prior to symptom onset. Numerous reviewers have experience similar symptoms including her . Patient reports she is unable to tolerate any p.o. over the past several days and has been vomiting nonbloody emesis after every p.o. trial. She additionally notes temperatures of 100.1, sinus congestion, nonproductive cough, right ear fullness and headaches. She has been unable to keep down her home medications. She denies any unilateral weakness, visual changes, chest pain, shortness of breath, abdominal pain, dysuria, urgency or frequency. Related Data Home Medications Medication Instructions Recorded Confirmed betamethasone dipropionate 0.05 % 1 applic topical DAILY PRN Rash 07/30/19 05/18/22 topical ointment vitamin B complex (Vitamins B 1 cap PO DAILY 07/30/19 05/18/22 Complex capsule) hydroxychloroquine 200 mg tablet 200 mg PO BID 11/13/19 05/18/22 aspirin 81 mg tablet 81 mg PO DAILY 05/09/20 05/18/22 cholecalciferol (vitamin D3) 50 50 mcg PO DAILY 05/09/20 05/18/22 mcg (2,000 unit) capsule ferrous sulfate 325 mg (65 mg 325 mg PO .every other day 01/19/21 05/18/22 iron) tablet (Iron (ferrous sulfate)) Allergies Allergy/AdvReac Type Severity Reaction Status Date / Time latex Allergy Intermediate hives and Verified 08/17/22 17:34 rash Penicillins Allergy Unknown Nausea and Verified 08/17/22 17:34 Vomiting Sulfa (Sulfonamide Allergy Unknown Nausea and Verified 08/17/22 17:34 Antibiotics) Vomiting sulfanilamide Allergy Unknown Nausea and Verified 08/17/22 17:34 Vomiting Review of Systems Review of Systems: Gen: Reports fevers Eyes: Denies eye pain or visual change ENT: Reports congestion Respiratory: Reports cough CV: Denies chest pain or palpitations GI: Reports nausea, vomiting and diarrhea. Denies abdominal pain denies burning, urgency, frequency or hematuria Musculoskeletal: Denies back pain or muscle pain Neuro: Denies numbness, tingling, weakness or focal weakness Skin: Denies rash Except as documented, all other systems reviewed and negative [facility] Past Medical History Medical History Anxiety Cardiomegaly Chronic obstructive pulmonary disease Iron deficiency anemia Mixed connective tissue disease Osteoporosis Pancreatic cancer Status post Whipple procedure in 2014. Rheumatoid arthritis Sinus node dysfunction Status post pacemaker insertion in February 2019. Systemic lupus erythematosus Surgical History Surgical History History of bilateral salpingo-oophorectomy (~1997) History of cardiac catheterization (~09/2018) Performed after an abnormal stress test, showing minimal coronary irregularities. History of cardiac pacemaker in situ (~02/2019) History of cholecystectomy (~2014) History of hysterectomy (~1986) History of pancreatic surgery (~2014) Status post Whipple procedure. Family History Family History Mother Family history of malignant neoplasm of ovary Son Diabetes mellitus Grandparent Diabetes mellitus Son Multiple sclerosis Social History Social History Social History: Surrogate decision maker: Rafael Zaidi, spouse. Code status: Full code. Smoking status: Never smoker Second hand tobacco smoke exposure: Yes ( for many years) Alcohol intake: current Drinks per week: 2 Al
[2022-08-17] MEDS: LACTATED RINGERS 1,000 ML 999 ML IV CONT ×2 (17:54→18:22)
[2022-08-17] MEDS: FAMOTIDINE 20 MG/2 ML VIAL IV PUSH (17:55)
[2022-08-17] MEDS: ONDANSETRON INJ 4 MG/2 ML VIAL IV PUSH (17:55)
[2022-08-17 18:11] LABS: Appearance Urine Clear (Clear); Bilirubin Urine 2+ (Negative); Blood Urine Negative (Negative); Color Urine Yellow (Yellow); Glucose Urine UA Negative (Negative); Ketones Urine 4+ mg/dL (Negative); Leukocyte Esterase Ur Negative LEU/UL (Negative); Nitrate Urine Negative (Negative); Protein Urine 2+ mg/dL (Negative); Specific Grav Ur 1.025 (1.001-1.035); Urobilinogen Urine 0.2 mg/dL (<2.0)
[2022-08-17 18:16] LABS: Hyaline Casts Urine 30-49 /lpf; Mucus Urine Heavy /lpf; RBC Urine >75 /hpf (0-2); Squamous Epithelial Cell Urine Occasional /hpf (Few); WBC Urine 0-3 /hpf
[2022-08-17 18:17] LABS: Add Urine Microscopic? YES
[2022-08-17 18:52] LABS: Influenza A QL RT-PCR Negative (Negative); Influenza B QL RT-PCR Negative (Negative); SARS-CoV-2 RNA PCR Negative
[2022-08-17 19:34] LABS: Troponin I < 0.012 ng/mL (0.000-0.034)
[2022-08-17] MEDS: PROCHLORPERAZINE EDISYLATE 10 MG/2 ML VIAL IV PUSH (20:25)
[2022-08-18 10:38] LABS: Strep Group A RT-PCR NOT DETECTED (Negative)
== END 2022-08-17 21:15 | disposition home or self-care (01) ==
PROVIDERS: Emergency Medicine; Emergency Provider Physician Assistant; PCP Family Medicine
DX: K52.9 Noninfective gastroenteritis and colitis, unspecified (principal); Z20.822 Contact with and (suspected) exposure to COVID-19; D50.9 Iron deficiency anemia, unspecified; M32.9 Systemic lupus erythematosus, unspecified; M81.0 Age-related osteoporosis without current pathological fracture; M06.9 Rheumatoid arthritis, unspecified; F41.9 Anxiety disorder, unspecified; Z85.07 Personal history of malignant neoplasm of pancreas; Z95.0 Presence of cardiac pacemaker; Z79.82 Long term (current) use of aspirin; Z90.722 Acquired absence of ovaries, bilateral; Z90.79 Acquired absence of other genital organ(s); Z90.710 Acquired absence of both cervix and uterus; Z77.22 Contact with and (suspected) exposure to environmental tobacco smoke (acute) (chronic); R94.31 Abnormal electrocardiogram [ECG] [EKG]
CPT/HCPCS: 36415; 71046; 74177; 80053; 81001; 83690; 84484; 85025; 85610; 85730; 87636; 87651; 93005; 96361; 96374; 96375; 99284; J0780; J2405; J7120; Q9967

== ENCOUNTER 2023-10-09 10:07 | Outpatient (CLI) | payer MEDICARE, SELFPAY ==
--- NOTE | ~2023-10-09 | CT_ITS ---
EXAMINATION: CT sinus wo con DATE: 10/09/2023 11:37 INDICATION: Chronic cough. TECHNIQUE: Computed tomography (CT) of the paranasal sinuses was performed without contrast. Iterativ e reconstruction technique was employed. Exam dose: 338.00 mGy-cm total exam DLP. COMPARISON: None FINDINGS: There is rightward bowing of the nasal septum. Moderate soft tissue swelling of the nasal turbinates. Intralamellar cell of left middle nasal turbinate. The ostiomeatal units are patent. Approximate 2.4 cm polyp or mucous retention cyst at the posterior floor of the left maxillary antrum . The paranasal sinuses otherwise are normally developed and aerated, without mass density or fluid lev el. The mastoid air cells are well-developed and aerated. IMPRESSION: 2.4 cm polyp or mucous retention cyst of left maxillary sinus Mild rightward bowing of nasal septum Intralamellar cell of left middle nasal turbinate. Reviewed, dictated and finalized at [facility]. Reviewed, dictated and finalized at location B.
== END 2023-10-09 10:08 | disposition home or self-care (01) ==
LOC: ANHIMG 10:10
PROVIDERS: PCP Family Medicine; Visit Provider Otolaryngology
DX: J34.89 Other specified disorders of nose and nasal sinuses (principal); R05.3 Chronic cough; J34.1 Cyst and mucocele of nose and nasal sinus; H93.19 Tinnitus, unspecified ear; H90.3 Sensorineural hearing loss, bilateral; H53.8 Other visual disturbances; J34.2 Deviated nasal septum
CPT/HCPCS: 70486

== ENCOUNTER 2023-10-26 09:55 | Outpatient (CLI) | payer MEDICARE, SELFPAY | END 2023-10-26 09:56 | disposition home or self-care (01) | LOC: ANHAUDIO 09:56 | PROVIDERS: PCP Family Medicine; Visit Provider Otolaryngology | DX: R05.3 Chronic cough (principal); J34.89 Other specified disorders of nose and nasal sinuses; J34.1 Cyst and mucocele of nose and nasal sinus; H93.19 Tinnitus, unspecified ear; H90.3 Sensorineural hearing loss, bilateral | CPT/HCPCS: 92557; 92567 ==

== ENCOUNTER 2024-02-05 10:31 | Emergency (ER) | payer MEDICARE, SELFPAY ==
[2024-02-05 10:42] VITALS: BP 164/69; PULSE 77; RESP 18; TEMP 36.4; O2SAT 100
--- NOTE | 2024-02-05 10:57 | ED.SKABFB ---
HPI - Skin/Abscess/Foreign Bdy General Chief complaint: Skin/Abscess/Foreign Body Stated complaint: burn to rt hand Time Seen by Provider: 02/05/24 10:57 Source: patient, RN notes reviewed and old records reviewed Mode of arrival: ambulatory Limitations: no limitations History of Present Illness HPI narrative: Patient presents with complaints of burn to right hand/ wrist that occurred last night at approximately 5:30 a.m.. She spilled boiling water on the affected area. She has been applying Vaseline and taking Tylenol and ibuprofen for pain. She reports minimal relief. She denies all other injury and trauma. She does have a couple of blisters, intact, to the affected area. She retains full range of motion. Mild swelling is present Related Data Home Medications Medication Instructions Recorded Confirmed hydroxychloroquine 200 mg tablet 200 mg PO BID 11/13/19 02/05/24 aspirin 81 mg tablet 81 mg PO DAILY 05/09/20 02/05/24 prednisone 5 mg tablet 5 mg PO DAILY 11/27/23 02/05/24 mecobalamin (vitamin B12) 1,000 1,000 mcg PO DAILY 02/05/24 02/05/24 mcg chewable tablet Allergies Allergy/AdvReac Type Severity Reaction Status Date / Time latex Allergy Intermediate hives and Verified 02/05/24 11:01 rash lisinopril AdvReac Mild Cough Verified 02/05/24 11:01 Penicillins AdvReac Unknown Nausea and Verified 02/05/24 11:01 Vomiting Sulfa (Sulfonamide AdvReac Unknown Nausea and Verified 02/05/24 11:01 Antibiotics) Vomiting sulfanilamide AdvReac Unknown Nausea and Verified 02/05/24 11:01 Vomiting Review of Systems Review of Systems: All systems reviewed & are unremarkable except as noted in HPI and below Constitutional: Constitutional: Reports no additional constitutional complaints ENT: Reports system reviewed and no additional complaints, except as documented Cardiovascular: Cardiovascular: Reports no additional cardiovascular complaints Respiratory: Respiratory: Reports no additional respiratory complaints Gastrointestinal: Gastrointestinal: Reports no additional gastrointestinal complaints Integumentary/Breasts: Skin/Breast: Reports as per HPI [facility] Past Medical History Medical History Anxiety Cardiomegaly Chronic obstructive pulmonary disease HTN (hypertension) Iron deficiency anemia Lupus Mixed connective tissue disease Osteoporosis Pancreatic cancer Status post Whipple procedure in 2014. Rheumatoid arthritis Sinus node dysfunction Status post pacemaker insertion in February 2019. Systemic lupus erythematosus Surgical History Surgical History History of bilateral salpingo-oophorectomy (~1997) History of cardiac catheterization (~09/2018) Performed after an abnormal stress test, showing minimal coronary irregularities. History of cardiac pacemaker in situ (~02/2019) History of cholecystectomy (~2014) History of hysterectomy (~1986) History of pancreatic surgery (~2014) Status post Whipple procedure. Family History Family History Mother Family history of malignant neoplasm of ovary Son Diabetes mellitus Grandparent Diabetes mellitus Son Multiple sclerosis Social History Social History Social History: Surrogate decision maker: Rafael Zaidi, spouse. Code status: Full code. Smoking status: Never smoker Second hand tobacco smoke exposure: Yes ( for many years) Alcohol intake: current Drinks per week: 2 Alcohol use details: rare Substance use: never Substance use type: does not use Do You Feel Safe in your Home?: Yes Lack of Transportation: No Lack of Food: Never True Concerned About Future Housing: Decline to Answer Difficulty Paying Gas/Electric Bills: Decline to Answer Difficulty Paying for Meds: Decline to Answer C
[2024-02-05] MEDS: SILVER SULFADIAZINE 1% CR 50 GM JAR (*BKC) 1 APPLIC TOPICAL (11:21)
== END 2024-02-05 11:48 | disposition home or self-care (01) ==
PROVIDERS: Emergency Provider Nurse Practitioner Family; PCP Family Medicine
DX: T23.261A Burn of second degree of back of right hand, initial encounter (principal); T23.151A Burn of first degree of right palm, initial encounter; T23.171A Burn of first degree of right wrist, initial encounter; X11.8XXA Contact with other hot tap-water, initial encounter; J44.9 Chronic obstructive pulmonary disease, unspecified; I10 Essential (primary) hypertension; D50.9 Iron deficiency anemia, unspecified; M81.0 Age-related osteoporosis without current pathological fracture; M06.9 Rheumatoid arthritis, unspecified; M32.9 Systemic lupus erythematosus, unspecified; Z95.0 Presence of cardiac pacemaker; I51.7 Cardiomegaly; Z79.82 Long term (current) use of aspirin; F41.9 Anxiety disorder, unspecified
CPT/HCPCS: 99213; A9270; G0463

== ENCOUNTER 2024-05-06 08:13 | Outpatient (CLI) | payer MEDICARE, SELFPAY ==
--- NOTE | ~2024-05-06 | MM_ITS ---
EXAMINATION: MM screening [place] w [place] HISTORY: Screening mammogram, family history of breast cancer in her mother. TECHNIQUE: Craniocaudal and mediolateral oblique 3-D tomosynthesis images were obtained and synthetic 2-D images were generated. CAD analysis was submitted and interpreted. COMPARISON: 01/20/2022, 06/18/2019 BREAST PARENCHYMAL COMPOSITION:Not Dense. There are scattered areas of fibroglandular density. FINDINGS: No suspicious mass, calcification, or architectural distortion are identified in either usman ast to suggest malignancy. There has been no suspicious interval change. IMPRESSION: No mammographic evidence of malignancy. Recommend routine screening mammography in one year. BI-RADS Category 1: Negative Reviewed, dictated and finalized at location .
== END 2024-05-06 08:14 | disposition home or self-care (01) ==
LOC: ANHIMG 08:14
PROVIDERS: PCP Family Medicine; Visit Provider Physician Assistant
DX: Z12.31 Encounter for screening mammogram for malignant neoplasm of breast (principal)
CPT/HCPCS: 77063; 77067

== ENCOUNTER 2024-06-04 10:37 | Emergency (ER) | payer MEDICARE, SELFPAY ==
[2024-06-04 10:53] VITALS: BP 139/71; PULSE 71; RESP 16; TEMP 36.9; O2SAT 100
--- NOTE | 2024-06-04 11:02 | ED.URI ---
HPI - URI/Sore Throat General Chief Complaint: Upper Respiratory Infection Stated Complaint: congestion Time Seen by Provider: 06/04/24 11:02 Source: patient Mode of arrival: ambulatory Limitations: no limitations History of Present Illness HPI Narrative: 73-year-old female presents with complaint of sinus congestion and pressure, postnasal drainage, mild cough for the past week. Patient reports that she is blowing green drainage from nose. using Flonase nasal spray and taking Claritin. Afebrile. Patient reports history of bacterial sinusitis and polyp to left Maxillary sinus. patient concern for sinus infection today. All systems reviewed and negative except as noted above. Related Data Home Medications Medication Instructions Recorded Confirmed aspirin 81 mg tablet 81 mg PO DAILY 05/09/20 06/04/24 mecobalamin (vitamin B12) 1,000 1,000 mcg PO DAILY 02/05/24 06/04/24 mcg chewable tablet Allergies Allergy/AdvReac Type Severity Reaction Status Date / Time latex Allergy Intermediate hives and Verified 06/04/24 11:06 rash lisinopril AdvReac Mild Cough Verified 06/04/24 11:06 Penicillins AdvReac Unknown Nausea and Verified 06/04/24 11:06 Vomiting Sulfa (Sulfonamide AdvReac Unknown Nausea and Verified 06/04/24 11:06 Antibiotics) Vomiting sulfanilamide AdvReac Unknown Nausea and Verified 06/04/24 11:06 Vomiting Review of Systems Review of Systems: CONSTITUTIONAL: Denies fever, chills, or sweats. EYES: Denies visual changes, redness, or discharge. ENT: Reports rhinorrhea, congestion, sinus pressure, postnasal drainage. Denies sore throat, or otalgia. CARDIOVASCULAR: Denies chest pain, palpitations, or edema. RESPIRATORY: reports cough. Denies dyspnea. GASTROINTESTINAL: Denies abdominal pain, nausea, vomiting, or diarrhea. GENITOURINARY: Denies dysuria or hematuria. SKIN: Denies rash or itching. MUSCULOSKELETAL: Denies back pain, joint pain, or myalgia. NEUROLOGIC: Denies headache, numbness, or weakness. PSYCHIATRIC: Denies anxiety or depression. All other systems reviewed are negative, except as documented in HPI. [facility] Past Medical History Medical History (Updated 06/04/24 @ 11:14 by Alicia Pang NP) Anxiety Cardiomegaly Chronic obstructive pulmonary disease History of pancreatic cancer HTN (hypertension) Iron deficiency anemia Lupus Mixed connective tissue disease Osteoporosis Pancreatic cancer Status post Whipple procedure in 2014. Rheumatoid arthritis Sinus node dysfunction Status post pacemaker insertion in February 2019. Systemic lupus erythematosus Surgical History Surgical History (Updated 05/29/24 @ 11:47 by Jordan Hayward MD) History of bilateral salpingo-oophorectomy (~1997) History of cardiac catheterization (~09/2018) Performed after an abnormal stress test, showing minimal coronary irregularities. History of cardiac pacemaker in situ (~02/2019) History of cholecystectomy (~2014) History of hysterectomy (~1986) History of pancreatic surgery (~2014) Status post Whipple procedure. Family History Family History Mother Family history of malignant neoplasm of ovary Son Diabetes mellitus Grandparent Diabetes mellitus Son Multiple sclerosis Social History Social History Social History: Surrogate decision maker: Rafael Zaidi, spouse. Code status: Full code. Smoking status: Never smoker Second hand tobacco smoke exposure: Yes ( for many years) Alcohol intake: current Drinks per week: 2 Alcohol use details: rare Substance use: never Substance use type: does not use Do You Feel Safe in your Home?: Yes Lack of Transportation: No Lack of Food: Never True Concerned About Future Housing: Decline to Answer Difficulty Paying Gas/Electric Bills: Decline to Answer Difficulty Paying for Meds: Decline to Answer Currently Unemployed: Decline to Answer Difficulty w/ Childcare or Family Care: No Living arrangements: with family Additional living arrangements comments: Resides in [place] with her . She has 3 grown children. Occupation/Education: retired Additional occupation/education comments: Retired and on disability. Gender identity (if verbalized by the patient): Female Sexual Orientation (if Verbalized by the Patient): Straight or Heterosexual Spiritual care concerns: No Comments At time of signature, agree with nursing past medical, surgical, social and family history. There is no relevant family history pertinent to the presenting complaint. Exam Narrative: GENERAL: This is a well-nourished, well-developed patient, in no apparent distress. HEAD: normocephalic, atraumatic. EYES: PERRL. Sclera clear/white. Vision is grossly intact. EARS: External ears normal, auditory canals clear and without drainage, fluid bilateral TMs, dull light reflex, no perforation bilaterally. Hearing grossly intact. NOSE: External nose normal with moderate congestion, erythema and swelling to bilateral nares, scant nasal drainage THROAT: Mucous membranes moist, erythema to posterior pharynx with postnasal drainage NECK: Neck supple, non-tender without lymphadenopathy, masses or thyromegaly. CARDIOVASCULAR: Regular rate and rhythm without murmurs, gallops, or rubs. RESPIRATORY: Clear to auscultation. Breath sounds equal bilaterally. No wheezes, rales, or rhonchi. SKIN: warm, Dry, intact with no suspicious lesions or rash, good texture and turgor. NEURO: awake, alert, and oriented to person, place and time. There were no obvious focal neurologic abnormalities. EXTREMITIES: No joint tenderness, effusion, or edema noted. Course Course Level of Care: Express Care Visit Vital Signs Vital signs: Vital Signs Temperature 36.9 C 06/04/24 10:53 Pulse Rate 71 06/04/24 10:53 Respiratory Rate 16 06/04/24 10:53 Blood Pressure 139/71 06/04/24 10:53 Pulse Oximetry 100 06/04/24 10:53 Oxygen Delivery Room Air 06/04/24 10:53 Temperature 36.9 C 06/04/24 10:53 Pulse Rate 71 06/04/24 10:53 Respiratory Rate 16 06/04/24 10:53 Blood Pressure 139/71 06/04/24 10:53 Pulse Oximetry 100 06/04/24 10:53 Oxygen Delivery Room Air 06/04/24 10:53 Reviewed MDM - URI/Sore Throat MDM Narrative Medical decision making narrative: Patient is aware of diagnosis, understands and agrees to treatment plan. Anticipatory guidance given. Patient agrees to follow-up as directed and is aware of reasons to seek care at the emergency department. Portions of this record may have been created with voice recognition software will treat patient for bacterial sinusitis due to duration of symptoms and exam findings. Differential Diagnosis Differential diagnosis: Likely upper respiratory infection, sinusitis, viral infection and pharyngitis Discharge Plan Discharge Clinical Impression: Acute bacterial sinusitis Patient Disposition: Home, Self-Care Condition: Stable Instructions: Antibiotic Form, Sinusitis (ED) Additional Instructions: Take antibiotic as prescribed until gone. Continue taking Claritin and Flonase. Take tylenol every 6 to 8 hours as needed for pain/fever. Drink plenty of water and rest. See your doctor if symptoms not improving. Prescriptions: New doxycycline hyclate 100 mg capsule 100 mg PO BID 7 Days Qty: 14 0RF No Action mecobalamin (vitamin B12) 1,000 mcg Tablet,Chewable 1,000 mcg PO DAILY Trelegy Ellipta 100-62.5-25 mcg blister with device See Rx Instructions .ROUTE .COMPLEX Qty: 60 5RF Dose Instruction: INHALE 1 PUFF BY MOUTH ONCE DAILY Rx Instructions: INHALE 1 PUFF BY MOUTH ONCE DAILY amlodipine 5 mg tablet 5 mg PO DAILY Qty: 30 5RF aspirin 81 mg Tablet 81 mg PO DAILY albuterol sulfate 90 mcg/actuation HFA aerosol inhaler See Rx Instructions .ROUTE .COMPLEX Qty: 6.7 2RF Dose Instruction: INHALE 2 PUFFS BY MOUTH EVERY 4 HOURS NEEDED FOR FOR SHORTNESS OF BREATH OR WHEEZING Rx Instructions: INHALE 2 PUFFS BY MOUTH EVERY 4 HOURS NEEDED FOR FOR SHORTNESS OF BREATH OR WHEEZING citalopram 40 mg tablet 40 mg PO HS Qty: 90 3RF Follow-up/Referrals: Jordan Hayward MD [Primary Care Provider] - Time of Disposition: 11:14
== END 2024-06-04 11:15 | disposition home or self-care (01) ==
PROVIDERS: Emergency Provider Nurse Practitioner Family; PCP Family Medicine
DX: J01.90 Acute sinusitis, unspecified (principal); B96.89 Other specified bacterial agents as the cause of diseases classified elsewhere; J44.9 Chronic obstructive pulmonary disease, unspecified; Z79.82 Long term (current) use of aspirin; Z85.07 Personal history of malignant neoplasm of pancreas
CPT/HCPCS: 99213; G0463

== ENCOUNTER 2024-06-14 07:51 | Outpatient (CLI) | payer MEDICARE, SELFPAY ==
--- NOTE | ~2024-06-14 | CT_ITS ---
CT of the Abdomen and Pelvis: Indication: Abdominal pain Technique: 2.5 mm axial scans were obtained through the abdomen and pelvis following intravenous adm inistration of 100 cc of Omnipaque 350. Dose reduction technique was used on this scan by utilizing a utomated exposure control and iterative reconstruction technique. The dose-length product (DLP) was 1 70.59 mGy-cm. COMPARISON: 08/17/2022 Findings: Scans through the lung bases are unremarkable. Diffuse hepatic steatosis noted. The spleen, adrenals and kidneys are within normal limits. No evide nce of aortic aneurysm. Status post cholecystectomy and pancreatic head resection. No lymphadenopathy . No bowel obstruction or bowel wall thickening. Prominent stool suggests constipation. Images through the pelvis were performed. Urinary bladder unremarkable. Status post hysterectomy. No pelvic mass seen. No ascites. T12 compression fracture deformity, unchanged. Impression: Constipation. Diffuse hepatic steatosis. Stable postoperative change. Reviewed, dictated and finalized at [facility]. OPERATOR Impression: Constipation. Diffuse hepatic steatosis. Stable postoperative change.
== END 2024-06-14 07:52 | disposition home or self-care (01) ==
PROVIDERS: PCP Family Medicine; Visit Provider Family Medicine
DX: R10.9 Unspecified abdominal pain (principal); Z85.07 Personal history of malignant neoplasm of pancreas; Z98.890 Other specified postprocedural states
CPT/HCPCS: 74177; Q9967

== ENCOUNTER 2024-07-24 00:31 | Day surgery (SDC) | payer MEDICARE, SELFPAY ==
[2024-07-04 13:04] VITALS: BMI 20.9
[2024-07-24 12:30] VITALS: BP 143/78; PULSE 86; RESP 16; TEMP 36.2; O2SAT 100
[2024-07-24] MEDS: LACTATED RINGERS 1,000 ML 150 ML IV CONT (12:39)
--- NOTE | 2024-07-24 12:56 | WPDANESEPPF ---
Anes - Initial Pre Proc Eval Procedure: Operation Date: 07/24/24 13:30 Proposed Procedures p Esophagogastroduodenoscopy - Sen Umaña MD Date/Time: 07/24/24 12:56 Surgeon: Sen Umaña MD Pre Op Diagnosis: epigastric pain Patient Data Age: 73 Gender: F Height: 1.57 m Weight: 48.8 kg Last Vital Signs Temp 36.2 C L 07/24/24 12:30 Pulse 86 07/24/24 12:30 Resp 16 07/24/24 12:30 BP 143/78 H 07/24/24 12:30 Pulse Ox 100 07/24/24 12:30 O2 Del Method Room Air 07/24/24 12:30 Allergies Allergy/AdvReac Type Severity Reaction Status Date / Time latex Allergy Intermediate hives and Verified 07/24/24 12:29 rash Penicillins AdvReac Unknown Nausea and Verified 07/24/24 12:29 Vomiting Sulfa (Sulfonamide AdvReac Unknown Nausea and Verified 07/24/24 12:29 Antibiotics) Vomiting sulfanilamide AdvReac Unknown Nausea and Verified 07/24/24 12:29 Vomiting Home Medications ?Medication ?Instructions ?Recorded ?Confirmed ?Type aspirin 81 mg tablet 81 mg PO DAILY 05/09/20 07/24/24 History citalopram 40 mg tablet 40 mg PO HS #90 tabs 12/18/23 07/24/24 Rx amlodipine 5 mg tablet 5 mg PO DAILY #30 tabs 03/06/24 07/24/24 Rx fluticasone fur. 100 mcg-umeclid See Rx Instructions .Route 05/22/24 07/24/24 Rx 62.5 mcg-vilant 25 mcg .COMPLEX ##60 inhalat.powder (Trelegy Ellipta) cetirizine 10 mg capsule (All Day 10 mg PO DAILY PRN allergy symptoms 07/04/24 07/04/24 History Allergy (cetirizine)) fluticasone propionate 50 1 spray intranasal DAILY 07/04/24 07/24/24 History mcg/actuation nasal spray,suspension prednisone 5 mg tablet 5 mg PO DAILY 07/04/24 07/24/24 History buspirone 7.5 mg tablet 7.5 mg PO TID #270 tabs 07/05/24 07/24/24 Rx hydrocodone 5 mg-acetaminophen 325 1 tablet PO Q8H PRN pain #21 tabs 07/11/24 07/24/24 Rx mg tablet albuterol sulfate 90 mcg/actuation See Rx Instructions .Route 07/22/24 07/24/24 Rx aerosol inhaler .COMPLEX #6.7 ea Patient hx anesthesia problems: none Family hx anesthesia problems: none Results Review: All pre-operative results and documents have been reviewed as part of the pre-operative evaluation. COUNTS INCLUDE 234 BEDS AT THE [facility] Past Medical History Medical History History of pancreatic cancer Lupus HTN (hypertension) Cardiomegaly Mixed connective tissue disease Rheumatoid arthritis Systemic lupus erythematosus Iron deficiency anemia Anxiety Chronic obstructive pulmonary disease Osteoporosis Sinus node dysfunction Status post pacemaker insertion in February 2019. Pancreatic cancer Status post Whipple procedure in 2014. Surgical History Surgical History History of cardiac catheterization (~09/2018) Performed after an abnormal stress test, showing minimal coronary irregularities. History of bilateral salpingo-oophorectomy (~1997) History of hysterectomy (~1986) History of cholecystectomy (~2014) History of cardiac pacemaker in situ (~02/2019) History of pancreatic surgery (~2014) Status post Whipple procedure. Family History Family History Mother Family history of malignant neoplasm of ovary Son Diabetes mellitus Grandparent Diabetes mellitus Son Multiple sclerosis Social History Social History Social History: Surrogate decision maker: Rafael Zaidi, spouse. Code status: Full code. Smoking status: Never smoker Second hand tobacco smoke exposure: Yes ( for many years) Alcohol intake: never Drinks per week: 2 Alcohol use details: rare Substance use: never Substance use type: does not use Do You Feel Safe in your Home?: Yes Lack of Transportation: No Lack of Food: Never True Concerned About Future Housing: Decline to Answer Difficulty Paying Gas/Electric Bills: Decline to Answer Difficulty Paying for Meds: Decline to Answer Currently Unemployed: Decline to Answer Difficulty w/ Childcare or Family Care: No Living arrangements: with family Additional living arrangements comments: Resides in [place] with her . She has 3 grown children. Occupation/Education: retired Additional occupation/education comments: Retired and on disability. Gender identity (if verbalized by the patient): Female Sexual Orientation (if Verbalized by the Patient): Straight or Heterosexual Spiritual care concerns: No Anes - Eval Final PreProcedure Day of Procedure 07/24/24 12:56 Patient weight: thin Heart: regular rate and rhythm Lungs: clear to auscultation Airway: Mallampati scale class II Neurological: alert and oriented Last oral intake: >/= 8 hours ASA classification: IV Emergent: no Anesthetic plan: proceed Anesthesia type and monitoring: general GIVS and standard monitoring Results Review: All pre-operative results and documents have been reviewed as part of the pre-operative evaluation. Informed Consent: The patient's anesthetic plan and its attendant risks and benefits were discussed with the patient/family/POA. Questions were solicited and answers provided to the satisfaction of the patient/family/POA.
--- NOTE | 2024-07-24 13:48 | P.HP_ITS ---
H&P: HPI History of Present Illness Date/Time: 07/24/24 13:48 Chief Complaint: epigastric pain- food intolerance Narrative: the patient has a history of pancreatic cancer, status post Whipple surgery 2014 with cholecystectomy, underwent chemotherapy. She was doing well until approximately 1 month ago in which she started to have ill-defined epigastric pain/ discomfort, early satiety and nausea almost daily. She has lost 6 lb in 1 month. Review of Systems Review of Systems: All systems reviewed & are unremarkable except as noted in HPI and below PMFSH Past Medical History Medical History History of pancreatic cancer Lupus HTN (hypertension) Cardiomegaly Mixed connective tissue disease Rheumatoid arthritis Systemic lupus erythematosus Iron deficiency anemia Anxiety Chronic obstructive pulmonary disease Osteoporosis Sinus node dysfunction Status post pacemaker insertion in February 2019. Pancreatic cancer Status post Whipple procedure in 2014. Surgical History Surgical History History of cardiac catheterization (~09/2018) Performed after an abnormal stress test, showing minimal coronary irregularities. History of bilateral salpingo-oophorectomy (~1997) History of hysterectomy (~1986) History of cholecystectomy (~2014) History of cardiac pacemaker in situ (~02/2019) History of pancreatic surgery (~2014) Status post Whipple procedure. Family History Family History Mother Family history of malignant neoplasm of ovary Son Diabetes mellitus Grandparent Diabetes mellitus Son Multiple sclerosis Social History Social History Social History: Surrogate decision maker: Rafael Chrisruthann, spouse. Code status: Full code. Smoking status: Never smoker Second hand tobacco smoke exposure: Yes ( for many years) Alcohol intake: never Drinks per week: 2 Alcohol use details: rare Substance use: never Substance use type: does not use Do You Feel Safe in your Home?: Yes Lack of Transportation: No Lack of Food: Never True Concerned About Future Housing: Decline to Answer Difficulty Paying Gas/Electric Bills: Decline to Answer Difficulty Paying for Meds: Decline to Answer Currently Unemployed: Decline to Answer Difficulty w/ Childcare or Family Care: No Living arrangements: with family Additional living arrangements comments: Resides in [place] with her . She has 3 grown children. Occupation/Education: retired Additional occupation/education comments: Retired and on disability. Gender identity (if verbalized by the patient): Female Sexual Orientation (if Verbalized by the Patient): Straight or Heterosexual Spiritual care concerns: No Meds Home Medications and Allergies Home Medications ?Medication ?Instructions ?Recorded ?Confirmed ?Type aspirin 81 mg tablet 81 mg PO DAILY 05/09/20 07/24/24 History citalopram 40 mg tablet 40 mg PO HS #90 tabs 12/18/23 07/24/24 Rx amlodipine 5 mg tablet 5 mg PO DAILY #30 tabs 03/06/24 07/24/24 Rx fluticasone fur. 100 mcg-umeclid See Rx Instructions .Route 05/22/24 07/24/24 Rx 62.5 mcg-vilant 25 mcg .COMPLEX ##60 inhalat.powder (Trelegy Ellipta) cetirizine 10 mg capsule (All Day 10 mg PO DAILY PRN allergy symptoms 07/04/24 07/04/24 History Allergy (cetirizine)) fluticasone propionate 50 1 spray intranasal DAILY 07/04/24 07/24/24 History mcg/actuation nasal spray,suspension prednisone 5 mg tablet 5 mg PO DAILY 07/04/24 07/24/24 History buspirone 7.5 mg tablet 7.5 mg PO TID #270 tabs 07/05/24 07/24/24 Rx hydrocodone 5 mg-acetaminophen 325 1 tablet PO Q8H PRN pain #21 tabs 07/11/24 07/24/24 Rx mg tablet albuterol sulfate 90 mcg/actuation See Rx Instructions .Route 07/22/24 07/24/24 Rx aerosol inhaler .COMPLEX #6.7 ea Allergies Allergy/AdvReac Type Severity Reaction Status Date / Time latex Allergy Intermediate hives and Verified 07/24/24 12:29 rash Penicillins AdvReac Unknown Nausea and Verified 07/24/24 12:29 Vomiting Sulfa (Sulfonamide AdvReac Unknown Nausea and Verified 07/24/24 12:29 Antibiotics) Vomiting sulfanilamide AdvReac Unknown Nausea and Verified 07/24/24 12:29 Vomiting Vital Signs Vital Signs - 24 hr 07/24/24 12:30 Temperature 97.1 F L Pulse Rate 86 Respiratory Rate 16 Blood Pressure 143/78 H Pulse Oximetry 100 Oxygen Delivery Room Air Exam Const: General: cooperative and healthy appearing Resp: Effort & Inspection: normal respiratory effort and able to speak in complete sentences Auscultation: clear to auscultation bilaterally Cardio: Rate: regular rate Rhythm: regular rhythm GI: Inspection: normal to inspection GI Palp: No No hepatosplenomegaly present Auscultation: normal bowel sounds Rectal Exam: deferred Skin: General skin exam: normal color Psych: Appearance: grossly normal Mental Status: mental status grossly normal Assessment and Plan Assessment and plan (1) Epigastric pain: Code(s): R10.13 - Epigastric pain Status: Acute Assessment and Plan: The patient is deemed a good candidate for the procedure. Consent signed. Will proceed.
[2024-07-24 14:06] VITALS: BP 121/56; PULSE 62; RESP 22; O2SAT 100
[2024-07-24 14:16] VITALS: BP 146/64; PULSE 60; RESP 20; O2SAT 100
[2024-07-24 14:26] VITALS: BP 158/70; PULSE 60; RESP 18; O2SAT 100
== END 2024-07-24 14:41 | disposition home or self-care (01) ==
PROVIDERS: PCP Family Medicine; Visit Provider Internal Medicine Gastroenterology
PROC: 0DJ08ZZ Inspection of Upper Intestinal Tract, Via Natural or Artificial Opening Endoscopic (ICD-10-PCS; CPT 43239; principal; 2024-07-24 13:30)
DX: K29.50 Unspecified chronic gastritis without bleeding (principal); I10 Essential (primary) hypertension; D50.9 Iron deficiency anemia, unspecified; F41.9 Anxiety disorder, unspecified; J44.9 Chronic obstructive pulmonary disease, unspecified; M81.0 Age-related osteoporosis without current pathological fracture; I49.5 Sick sinus syndrome; M32.9 Systemic lupus erythematosus, unspecified; M35.1 Other overlap syndromes; M06.9 Rheumatoid arthritis, unspecified; Z79.82 Long term (current) use of aspirin; Z79.51 Long term (current) use of inhaled steroids; Z79.891 Long term (current) use of opiate analgesic; Z79.52 Long term (current) use of systemic steroids; Z98.890 Other specified postprocedural states; Z98.61 Coronary angioplasty status; Z90.49 Acquired absence of other specified parts of digestive tract; Z95.0 Presence of cardiac pacemaker; Z85.07 Personal history of malignant neoplasm of pancreas; Z80.41 Family history of malignant neoplasm of ovary
CPT/HCPCS: 43239; 88305; J2003; J2704; J7120

== ENCOUNTER 2024-09-20 09:20 | Emergency (ER) | payer MEDICARE, SELFPAY ==
[2024-09-20] VITALS (17 sets, daily range): BP systolic 134–172; BP diastolic 70–82; PULSE 60–81; RESP 14–19; TEMP 36.5; O2SAT 97–100
--- NOTE | ~2024-09-20 | CT_ITS ---
EXAMINATION: CTA chest PE abdomen pel DATE: 09/20/2024 13:25 INDICATION: Abdominal pain. Shortness of breath. TECHNIQUE: Computed tomography angiography (CTA) of the chest was performed with 100 mL Omnipaque-350 intravenous contrast timed to evaluate the pulmonary arteries. Coronal maximum intensity projection 3D-reconstructions were created by the technologist. Computed tomography (CT) of the abdomen and pelv is was performed with intravenous contrast. Automated exposure control and iterative reconstruction t echnique were employed. The dose-length product was 310.75 mGy-cm. COMPARISON: CT abdomen and pelvis 06/14/2024 FINDINGS: CTA chest: There is mild scarring at the lung apices. There is mild atelectasis bilaterally. No pleur al effusion. The heart size is normal. There is a left chest wall pacer with leads in the right atriu m and right ventricle. There is a trace pericardial effusion. There is no pulmonary embolus. There is mild thoracic spondylosis. There is a chronic burst fracture of T12. CT abdomen and pelvis: The liver and spleen are normal. The gallbladder is absent. The pancreas, adre nal glands are normal. There is cortical thinning of the kidneys. There is diverticulosis of the colo n without evidence of diverticulitis. There are no dilated loops of bowel. The appendix is normal. Th ere are no pathologically enlarged lymph nodes. There is no free intraperitoneal fluid. There is joseph re lower lumbar spondylosis. IMPRESSION: 1. No pulmonary embolus. Reviewed, dictated and finalized at location L. IMPRESSION: 1. No pulmonary embolus.
--- OUTSIDE RECORDS SUMMARY | 2024-09-20 09:54 | XMS_ITS | Clinical Summary ---
Author Organization [facility] Address [address] [place] [address] Care Team Providers Care Butcher Name Role Phone Jordan Hayward MD Primary Care Provider [phone] Allergies Active Allergy Reactions Criticality Noted Date Comments Penicillin V Hives 03/24/2018 Sulfa Antibiotics Hives 03/24/2018 Social History Tobacco Use Types Packs/Day Years Used Date Smoking Tobacco: Never Assessed Alcohol Use Standard Drinks/Week Comments Not Asked 0 (1 standard drink = 0.6 oz pur e alcohol) Comments Unknown Sex and Gender Information Value Date Recorded Sex Assigned at Not on file Legal Sex Female 12:07 PM CDT Gender Identity Not on file Sexual Orientation Not on file Last Filed Vital Signs Vital Sign Reading Time Taken Comments Blood Pressure 140/64 03/24/2018 5:37 PM CDT Pulse 48 03/24/2018 5:37 PM CDT Temperature 37.1 C (98.8 F) 03/24/2018 12:15 PM CDT Respiratory Rate 18 03/24/2018 5:37 PM CDT Oxygen Saturation 98% 03/24/2018 5:37 PM CDT Inhaled Oxygen Concentration - - Weight 52.2 kg (115 lb 1.3 oz) 03/24/2018 12:15 PM CDT Height 157.5 cm (5' 2 ) 03/24/2018 12:15 PM CDT Body Mass Index 21.05 03/24/2018 12:15 PM CDT Plan of Treatment Health Maintenance Due Date Last Done Comments Colorectal Cancer Screening Colonoscopy (10 Years) 1950 Hepatitis C 09/12/1969 DTaP, Tdap and Td Vaccines ( 1 - Tdap) 09/12/1970 Mammogram Screening 1991 Zoster Vaccines (1 of 2) 09/12/2001 Dexa Scan (General) 09/12/2016 Pneumococcal Vaccine: 65+ Ye ars (1 of 1 - PCV) 09/12/2016 COVID-19 Vaccine ( - 2023-2 5 season) 2024 Influenza Adult (#1) 2024 RSV Immunization or 60+ Years (1 - 1-dose 75+ series) 09/12/2026 Meningococcal B Vaccine Aged Out No l onger eligible based on patient's age to complete this topic Meningococcal Vaccine Aged Out No curly ernestine eligible based on patient's age to complete this topic RSV Immunizations Under 20 Months Aged Out No longer eligible based on patient's age to complete this topic Care Teams Butcher Relationship Specialty Start Date End Date Jordan Hayward MD [address] [place] [address] PCP - General FAMILY PRACTICE 03/24/18
--- OUTSIDE RECORDS SUMMARY | 2024-09-20 09:54 | XMS_ITS | Continuity of Care Document ---
Author Organization [facility] Address [address] [place] [address] [address] [place] [address] Phone Care Team Providers Care Electroencephalograph Technologist Name Role Phone [facility] Unavailable Unavail able Unavailable Unavailable Unavailable Advance Directives Directive Yes / No Effective Date File Name No Information Encounters Encounter Description Practice Location Reason(s) For Visit Diagnoses Date Provider Providers Copied on Encounter [facility], [address], [place], [place], [address], [place] tel:[phone] [facility] No Information [facility] [address] [facility], [address], [place], [place], [address] , [place]. tel:[phone] Referring Provider: Mirta Reid, [address] [place] [address] , [place], [address]. tel:[phone] Family History Family Member Type Diagnosis Age At Onset No Information Payers Payer name Insurance type Covered alliance party ID Authoriza tion(s) No Information Social History Type Description Quantity Date Captured Comments Sex Female Smoking Status No Information Chief Complaint And Reason For Visit No Information Reason For Referral Reason For Referral No Information History Of Present Illness Encounter Date Complaint History Of Prese nt Illness No Information Functional Status Date Functional Assessmen t No Information Instructions Date Instruction Additional Infor mation No Information Assessments Type Assessment Date No Information Patient Care Teams Name Effective Dates (start - stop) Status Members No Information
--- NOTE | 2024-09-20 10:08 | ECG_ITS ---
Test Date: 2024-09-20 10:16:29 Measurements Intervals [employer] Rate: 62 P: 46 KS: 170 QRS: 37 QRSD: 91 T: 39 QT: 394 QTc: 401 Interpretive Statements ELECTRONIC ATRIAL PACEMAKER NONSPECIFIC T-WAVE ABNORMALITY Electronically Signed On 09-22-2024 13:47:19 CDT by Margarito Lester D.O
[2024-09-20 10:59] LABS: Alanine Aminotransferase 18 U/L (6-35); Albumin Level 4.2 g/dL (3.5-5.1); Alkaline Phosphatase 79 U/L (38-126); Anion Gap 9 mmol/L (4-12); Aspartate Amino Transferase 25 U/L (14-36); Bilirubin,Total 0.3 mg/dL (0.2-1.3); Blood Urea Nitrogen 15 mg/dL (7-17); Calcium 8.8 mg/dL (8.4-10.2); Carbon Dioxide 28 mmol/L (22-30); Chloride 102 mmol/L (98-107); Estimated CRCL calculation 41 ml/min; Estimated Glomerular Filt Rate > 60; Glucose 91 mg/dL (65-110); Lipase 23 U/L (23-300); Sodium 139 mmol/L (137-145)
[2024-09-20 11:02] LABS: Basophils Percent Auto 0.3 % (0.2-1.2); Eosinophils Percent Auto 0.9 % (0-4.4); Hematocrit 32.7 % (37.0-47.0); Immature Granulocyte Absolute 0.01 K/mm3 (0.00-0.031); Immature Granulocyte Percent A 0.3 % (0-0.5); Lymphocytes Percent Auto 17.5 % (18.3-44.2); Mean Corpuscular HGB Conc 30.6 g/dl (32-36); Mean Corpuscular Hemoglobin 27.6 pg (26-34); Mean Corpuscular Volume 90.3 fl (80-100); Mean Platelet Volume 9.4 fl (7.4-10.4); Monocytes Absolute Auto 0.6 K/mm3 (0.1-0.6); Monocytes Percent Auto 18.1 % (2.6-8.5); Neutrophils Absolute Auto 2.2 K/mm3 (1.3-6.7); Neutrophils Percent Auto 62.9 % (45.5-73.1); Platelet Count Result 181 k/mm3 (150-375); Red Blood Count 3.62 M/mm3 (4.2-5.4); White Blood Count 3.4 K/mm3 (4.5-10.0)
--- NOTE | 2024-09-20 11:24 | ED.ABDPAIN ---
HPI - Abdominal Pain General Chief Complaint: Abdominal Pain Stated Complaint: gastritis is getting worse Time Seen by Provider: 09/20/24 10:16 Source: patient Mode of arrival: ambulatory Limitations: no limitations History of Present Illness HPI narrative: This is a 74 year old female that presents to the ER for multiple symptoms that have been ongoing over the last several months. Reports nausea, decreased appetite, abdominal pain, back pain, constipation, diarrhea, shortness of breath, dizziness, fatigue. She attributes all of this to her gastritis. She recently saw her GI doctor. She has been taking her medications as prescribed without improvement. She is scheduled for an MRI of her abdomen for further evaluation, but this is not for a couple of months. Related Data Home Medications ?Medication ?Instructions ?Recorded ?Confirmed ?Last Taken ?Type aspirin 81 mg tablet 81 mg PO DAILY 05/09/20 08/23/24 07/23/24 History cetirizine 10 mg capsule (All Day 10 mg PO DAILY PRN allergy symptoms 07/04/24 08/23/24 Unknown History Allergy (cetirizine)) fluticasone propionate 50 1 spray intranasal DAILY 07/04/24 08/23/24 07/23/24 History mcg/actuation nasal spray,suspension prednisone 5 mg tablet 5 mg PO DAILY 07/04/24 08/23/24 07/02/24 History Allergies Allergy/AdvReac Type Severity Reaction Status Date / Time latex Allergy Intermediate hives and Verified 09/20/24 09:21 rash Penicillins AdvReac Unknown Nausea and Verified 09/20/24 09:21 Vomiting Sulfa (Sulfonamide AdvReac Unknown Nausea and Verified 09/20/24 09:21 Antibiotics) Vomiting sulfanilamide AdvReac Unknown Nausea and Verified 09/20/24 09:21 Vomiting Review of Systems Review of Systems: CONSTITUTIONAL: Denies fever RESPIRATORY: Reports dyspnea. GASTROINTESTINAL: Reports abdominal pain, nausea, vomiting, and diarrhea. MUSCULOSKELETAL: Reports back pain All systems reviewed & are unremarkable except as noted in HPI and below PMFSH Past Medical History Medical History Gastritis History of pancreatic cancer Lupus HTN (hypertension) Cardiomegaly Mixed connective tissue disease Rheumatoid arthritis Systemic lupus erythematosus Iron deficiency anemia Anxiety Chronic obstructive pulmonary disease Osteoporosis Sinus node dysfunction Status post pacemaker insertion in February 2019. Pancreatic cancer Status post Whipple procedure in 2014. Surgical History Surgical History History of cardiac catheterization (~09/2018) Performed after an abnormal stress test, showing minimal coronary irregularities. History of bilateral salpingo-oophorectomy (~1997) History of hysterectomy (~1986) History of cholecystectomy (~2014) History of cardiac pacemaker in situ (~02/2019) History of pancreatic surgery (~2014) Status post Whipple procedure. Family History Family History Mother Family history of malignant neoplasm of ovary Son Diabetes mellitus Grandparent Diabetes mellitus Son Multiple sclerosis Social History Social History Social History: Surrogate decision maker: Rafaeldeidre Zaidi, spouse. Code status: Full code. Smoking status: Never smoker Second hand tobacco smoke exposure: Yes ( for many years) Alcohol intake: never Drinks per week: 2 Alcohol use details: rare Substance use: never Substance use type: does not use Do You Feel Safe in your Home?: Yes Lack of Transportation: No Lack of Food: Never True Concerned About Future Housing: Decline to Answer Difficulty Paying Gas/Electric Bills: Decline to Answer Difficulty Paying for Meds: Decline to Answer Currently Unemployed: Decline to Answer Difficulty w/ Childcare or Family Care: No Living arrangements: with family Additional living arrangements comments: Resides in [place] with her . She has 3 grown children. Occupation/Education: retired Additional occupation/education comments: Retired and on disability. Gender identity (if verbalized by the patient): Female Sexual Orientation (if Verbalized by the Patient): Straight or Heterosexual Spiritual care concerns: No Exam Narrative: GENERAL: Well-appearing, well-nourished, and in no acute distress. HEAD: Normocephalic, atraumatic. EYES: EOMI. ENT: Nares clear, no rhinorrhea or epistaxis. Mucous membranes moist. Oropharynx without tonsillar hypertrophy exudate or other lesions. NECK: Supple. No adenopathy or masses. CHEST: Clear to auscultation. No respiratory distress. No wheezes rales or rhonchi HEART: Regular rate and rhythm. No murmur heard. Normal peripheral pulses. ABDOMEN: Soft, nontender, nondistended, normal active bowel sounds. EXTREMITIES: Normal range of motion. No edema. SKIN: Warm, dry, no rash. NEURO: No focal deficits. Alert and oriented x3. PSYCH: Normal mood and affect Course Course Emergency Course: patient updated on her workup and agrees with plan of care Vital Signs Vital signs: Vital Signs Temperature 97.7 F 09/20/24 09:26 Pulse Rate 80 09/20/24 09:26 Respiratory Rate 16 09/20/24 09:26 Blood Pressure 149/70 H 09/20/24 09:26 Pulse Oximetry 100 09/20/24 09:26 Oxygen Delivery Room Air 09/20/24 09:26 Temperature 97.7 F 09/20/24 09:26 Pulse Rate 64 09/20/24 14:15 Respiratory Rate 17 09/20/24 14:15 Blood Pressure 172/77 H 09/20/24 13:28 Pulse Oximetry 97 09/20/24 14:15 Oxygen Delivery Room Air 09/20/24 09:26 MDM - Abdominal Pain MDM Narrative Medical decision making narrative: Patient presents to the emergency department with multiple complaints. Ongoing over several months. She is afebrile and nontoxic appearing. Her vitals are stable. CBC with anemia which appears to be around her baseline. Metabolic panel without concerning findings. EKG without concerning changes. Urine without evidence of infection. TSH is normal D-dimer elevated, CTA of the chest PE with abdomen pelvis obtained. No evidence for PE or acute cardiopulmonary abnormality. No acute findings in the abdomen and pelvis. patient updated on her workup and agrees with plan of care. She is to follow up with her specialist for further care. She was given warnings to return to the ER Differential Diagnosis Differential diagnosis: Likely calculus of kidney, constipation, diverticulitis and other (UTI, PE, thyroid dysfunction, electrolyte derangement, dehydration, GERD, muscle strain, back fracture, pancreatitis) Lab Data Attestation: I reviewed the patient's lab results. 09/20/24 10:25 09/20/24 10:25 Labs: Lab Results 09/20/24 09/20/24 Range/Units 10:25 12:29 WBC 3.4 L (4.5-10.0) K/mm3 RBC 3.62 L (4.2-5.4) M/mm3 Hgb 10.0 L (12.0-15.0) g/dL Hct 32.7 L (37.0-47.0) % MCV 90.3 (80-100) fl MCH 27.6 (26-34) pg MCHC 30.6 L (32-36) g/dl RDW 16.0 H (11.5-14.5) % Plt Count 181 (150-375) k/mm3 MPV 9.4 (7.4-10.4) fl Immature Gran % (Auto) 0.3 (0-0.5) % Neut % (Auto) 62.9 (45.5-73.1) % Lymph % (Auto) 17.5 L (18.3-44.2) % Trinity % (Auto) 18.1 H (2.6-8.5) % Eos % (Auto) 0.9 (0-4.4) % Baso % (Auto) 0.3 (0.2-1.2) % Lymph # (Auto) 0.60 L (0.9-3.2) K/mm3 Trinity # (Auto) 0.6 (0.1-0.6) K/mm3 Eos # (Auto) 0.0 (0-0.3) K/mm3 Baso # (Auto) 0.0 (0.0-0.1) K/mm3 Abs Immat Gran (auto) 0.01 (0.00-0.031) K/mm3 Absolute Neuts (auto) 2.2 (1.3-6.7) K/mm3 Absolute Nucleated RBC 0.000 (0.0-0.012) K/mm3 Nucleated RBC % 0.0 (0.0-0.2) % PT 12.7 (11.1-14.7) Seconds INR 0.9 APTT 26.7 (22.3-36.8) Seconds D-Dimer 0.49 H (<0.48) ug/mL Sodium 139 (137-145) mmol/L Potassium 4.0 (3.4-5.0) mmol/L Chloride 102 (98-107) mmol/L Carbon Dioxide 28 (22-30) mmol/L Anion Gap 9 (4-12) mmol/L BUN 15 D (7-17) mg/dL Creatinine 0.81 (0.7-1.0) mg/dL Estim Creat Clear Calc 41 ml/min Estimated GFR > 60 (59 - ) Glucose 91 (65-110) mg/dL Calcium 8.8 (8.4-10.2) mg/dL Total Bilirubin 0.3 (0.2-1.3) mg/dL AST 25 (14-36) U/L ALT 18 (6-35) U/L Alkaline Phosphatase 79 (38-126) U/L Total Protein 7.0 (6.3-8.2) g/dL Albumin 4.2 (3.5-5.1) g/dL Lipase 23 (23-300) U/L TSH (Reflex) 2.050 (0.465-4.68) uIU/mL Urine Color Yellow (Yellow) Urine Appearance Clear (Clear) Urine pH 8.0 (5.0-9.0) Ur Specific [place] 1.012 (1.001-1.035) Urine Protein Negative (Negative) mg/dL Urine Glucose (UA) Negative (Negative) mg/dL Urine Ketones Negative (Negative) mg/dL Ur Blood (Man) Negative (Negative) Urine Nitrate Negative (Negative) Urine Bilirubin Negative (Negative) Urine Urobilinogen 0.2 (<2.0) mg/dL Leukocyte Esterase Rfl Negative (Negative) HERNAN/UL Imaging Data Radiologist's impression: ITS Impressions Chest/Abdomen/Pelvis CTA 09/20/24 13:29 IMPRESSION: 1. No pulmonary embolus. Critical Care Time Critical Care Time Critical Care Time: No Discharge Plan Discharge Clinical Impression: Abdominal pain Qualifiers: Abdominal location: unspecified location Qualified Code(s): R10.9 - Unspecified abdominal pain Back pain Qualifiers: Back pain location: thoracic back pain Chronicity: chronic Back pain laterality: midline Qualified Code(s): M54.6 - Pain in thoracic spine Burst fracture of thoracic vertebra Qualifiers: Encounter type: initial encounter Fracture type: closed Qualified Code(s): S22.001A - Stable burst fracture of unspecified thoracic vertebra, initial encounter for closed fracture Patient Disposition: Home, Self-Care Condition: Stable Instructions: Thoracolumbar Fracture (ED), Abdominal Pain (ED), Back Pain (ED) Additional Instructions: Return to the emergency department if you experience fever, chest pain, worsening shortness of breath, abdominal pain with nausea and vomiting, weakness, numbness, or any other symptoms that are concerning to you. Your blood work, EKG and imaging were reassuring today Follow up with your primary care doctor and GI doctor Patient Language: Vietnamese Prescriptions: No Action Trelesharon Ellipta 100-62.5-25 mcg blister with device See Rx Instructions .ROUTE .COMPLEX Qty: 60 5RF Dose Instruction: INHALE 1 PUFF BY MOUTH ONCE DAILY Rx Instructions: INHALE 1 PUFF BY MOUTH ONCE DAILY amlodipine 5 mg tablet 5 mg PO DAILY Qty: 30 5RF pantoprazole 40 mg tablet,delayed release (DR/EC) 40 mg PO BID Qty: 60 3RF Creon 36,000-114,000- 180,000 unit capsule,delayed release(DR/EC) 1 cap PO QID Qty: 300 11RF Rx Instructions: administer with meals and/or snacks ondansetron 4 mg tablet,disintegrating 4 - 8 mg PO Q8H PRN (Reason: nausea and vomiting) Qty: 60 0RF aspirin 81 mg Tablet 81 mg PO DAILY prednisone 5 mg tablet 5 mg PO DAILY fluticasone propionate 50 mcg/actuation spray,suspension 1 spray INTRANASAL DAILY All Day Allergy (cetirizine) 10 mg capsule 10 mg PO DAILY PRN (Reason: allergy symptoms) citalopram 40 mg tablet 40 mg PO HS Qty: 90 3RF buspirone 7.5 mg tablet 7.5 mg PO TID Qty: 270 3RF hydrocodone-acetaminophen 5-325 mg tablet 1 tablet PO Q8H PRN (Reason: pain) Qty: 21 0RF albuterol sulfate 90 mcg/actuation HFA aerosol inhaler See Rx Instructions .ROUTE .COMPLEX Qty: 6.7 2RF Dose Instruction: INHALE 2 PUFFS BY MOUTH EVERY 4 HOURS NEEDED FOR FOR SHORTNESS OF BREATH OR WHEEZING Rx Instructions: INHALE 2 PUFFS BY MOUTH EVERY 4 HOURS NEEDED FOR FOR SHORTNESS OF BREATH OR WHEEZING Zenpep 25,000-79,000- 105,000 unit capsule,delayed release(DR/EC) 1 cap PO QID Qty: 300 12RF Rx Instructions: administer with meals and/or snacks Follow-up/Referrals: Jordan Hayward MD [Primary Care Provider] -
[2024-09-20 11:59] LABS: INR 0.9; Partial Thromboplastin Time 26.7 Seconds (22.3-36.8); Prothrombin Time 12.7 Seconds (11.1-14.7)
--- OUTSIDE RECORDS SUMMARY | 2024-09-20 12:10 | XMS_ITS | Clinical Summary ---
Author Organization [facility] Address [address] [place] [address] Care Team Providers Care Tire Builder Operator Name Role Phone Jordan Hayward MD Primary Care Provider [phone] Allergies Active Allergy Reactions Criticality Noted Date [...] age to complete this topic Care Teams Tire Builder Operator Relationship Specialty Start Date End Date Jordan Hayward MD [address] [place] [address] PCP - General FAMILY PRACTICE 03/24/18
--- OUTSIDE RECORDS SUMMARY | 2024-09-20 12:10 | XMS_ITS | Continuity of Care Document ---
Author Organization [facility] Address [address] [place] [address] [address] [place] [address] Phone Care Team Providers Care Excelsior Machine Feeder Name Role Phone [facility] Unavailable Unavail able Unavailable Unavailable Unavailable Advance Directives Directive Yes / No Effective Date File Name No Information Encounters Encounter Description Practice Location Reason(s) For Visit Diagnoses Date Provider Providers Copied on Encounter [facility], [address], [place], [place], [address], [place] tel:[phone] [facility] No Information [facility] [address] [facility], [address], [place], [place], [address] , [place]. tel:[phone] Referring Provider: Mirta Reid, [address] [place] [address] , [place], [address]. tel:[phone] Family History Family Member Type Diagnosis Age [...]
[2024-09-20 12:30] LABS: D Dimer 0.49 ug/mL (<0.48)
[2024-09-20 12:38] LABS: Add Urine Microscopic? NO; Appearance Urine Clear (Clear); Bilirubin Urine Negative (Negative); Blood Urine Negative (Negative); Color Urine Yellow (Yellow); Glucose Urine UA Negative (Negative); Ketones Urine Negative (Negative); Leukocyte Esterase Ur Negative LEU/UL (Negative); Nitrate Urine Negative (Negative); Protein Urine Negative (Negative); Specific Grav Ur 1.012 (1.001-1.035); Urobilinogen Urine 0.2 mg/dL (<2.0)
== END 2024-09-20 14:56 | disposition home or self-care (01) ==
PROVIDERS: Emergency Provider Physician Assistant; PCP Family Medicine
DX: S22.001A Stable burst fracture of unspecified thoracic vertebra, initial encounter for closed fracture (principal); R10.9 Unspecified abdominal pain; Z79.82 Long term (current) use of aspirin; Z85.07 Personal history of malignant neoplasm of pancreas; M32.9 Systemic lupus erythematosus, unspecified; I10 Essential (primary) hypertension; M06.9 Rheumatoid arthritis, unspecified; F41.9 Anxiety disorder, unspecified; M81.0 Age-related osteoporosis without current pathological fracture; J44.9 Chronic obstructive pulmonary disease, unspecified; Z95.0 Presence of cardiac pacemaker
CPT/HCPCS: 36415; 71275; 74177; 80053; 81003; 83690; 84443; 85025; 85380; 85610; 85730; 93005; 99284; Q9967

== ENCOUNTER 2024-12-11 12:14 | Outpatient (CLI) | payer MEDICARE, SELFPAY ==
--- OUTSIDE RECORDS SUMMARY | 2024-12-11 12:16 | XMS_ITS | Continuity of Care Document ---
Author Organization [facility] Address [address] [place] [address] [address] [place] [address] Phone Care Team Providers Care Case Finishing Machine Adjuster Name Role Phone [facility] Unavailable Unavail able Unavailable Unavailable Unavailable Advance Directives Directive Yes / No Effective Date File Name No Information Encounters Encounter Description Practice Location Reason(s) For Visit Diagnoses Date Provider Providers Copied on Encounter [facility], [address], [place], [place], [id number], [place] tel:[phone] [facility] No Information [facility] [address] [facility], [address], [place], [place], [address] , [place]. tel:[phone] Referring Provider: Mirta Reid, [address] [place] [address] , [place], [address]. tel:[phone] Family History Family Member Type Diagnosis Age At Onset No Information Payers Payer name Insurance type Covered constitution party ID Authoriza tion(s) No Information Social [...]
[2024-12-11 13:15] LABS: Basophils Percent Auto 0.2 % (0.2-1.2); Eosinophils Absolute Auto 0.1 K/mm3 (0-0.3); Eosinophils Percent Auto 1.5 % (0-4.4); Hematocrit 28.7 % (37.0-47.0); Hemoglobin 8.6 g/dL (12.0-15.0); Immature Granulocyte Absolute 0.03 K/mm3 (0.00-0.031); Immature Granulocyte Percent A 0.5 % (0-0.5); Lymphocytes Absolute Auto 0.83 K/mm3 (0.9-3.2); Lymphocytes Percent Auto 15.1 % (18.3-44.2); Mean Corpuscular Hemoglobin 27.5 pg (26-34); Mean Corpuscular Volume 91.7 fl (80-100); Mean Platelet Volume 9.1 fl (7.4-10.4); Monocytes Absolute Auto 0.7 K/mm3 (0.1-0.6); Monocytes Percent Auto 12.5 % (2.6-8.5); Neutrophils Absolute Auto 3.9 K/mm3 (1.3-6.7); Neutrophils Percent Auto 70.2 % (45.5-73.1); Platelet Count Result 210 k/mm3 (150-375); Red Blood Count 3.13 M/mm3 (4.2-5.4); Red Cell Distribution Width 15.9 % (11.5-14.5); White Blood Count 5.5 K/mm3 (4.5-10.0)
== END 2024-12-11 12:15 | disposition home or self-care (01) ==
PROVIDERS: PCP Family Medicine; Visit Provider Student in an Organized Health Care Education/Training Program
DX: R60.9 Edema, unspecified (principal)
CPT/HCPCS: 36415; 85025

== ENCOUNTER 2024-12-25 08:28 | Emergency (ER) | payer MEDICARE, SELFPAY ==
[2024-12-25] VITALS (10 sets, daily range): BP systolic 132–175; BP diastolic 64–93; PULSE 60–82; RESP 16–22; TEMP 36.6; O2SAT 98–100
--- NOTE | ~2024-12-25 | CT_ITS ---
CT brain wo con Ordering provider: Gonzalo Bee MD History: 74 years Female with . dizziness . Comparison: October 09, 2023 Technique: CT of the head without contrast. Radiation reduction technique utilized.The dose-length product was 605.33 mGy-cm. FINDINGS: BRAIN PARENCHYMA AND CSF SPACES: Mild leukoaraiosis and diffuse cortical atrophy. Mild atheromatous d isease. No midline shift, mass effect or hemorrhage. The brain parenchyma and CSF spaces are otherwi se normal. VISUALIZED PARANASAL SINUSES: Left maxillary sinus disease. Bilateral ethmoid sinus disease. Well aer ated. MASTOIDS: Well aerated. BONES: The bones appear intact. SOFT TISSUES: Visualized nasopharynx is normal. Superficial soft tissues are normal. IMPRESSION: No acute intracranial findings. Reviewed, dictated and finalized at location A.
--- NOTE | ~2024-12-25 | CT_ITS ---
CT soft tissue neck w con Ordering provider: Gonzalo Bee MD History: 74 years Female with . facial swelling . Comparison: None. Technique: CT soft tissues neck was performed with contrast. . Automated exposure control and iterat herlinda reconstruction technique were employed. The dose-length product was 249.73 mGy-cm. 75 mL Omnipaqu e 350 was given IV. Findings: LOWER HEAD: The visualized brain parenchyma, optic globes/orbits and mastoids are normal. Left maxil chris sinus disease. Otherwise, The visualized paranasal sinuses are well aerated. SALIVARY GLANDS: Normal. THYROID: Normal. SUPRAHYOID DEEP SPACES: Normal. CAROTID ARTERIES: Normal. Retropharyngeal right carotid is seen. JUGULAR VEINS: Normal. TONSILS: Normal. ORAL CAVITY: Partially obscured by dental amalgam but normal as visualized. PHARYNX, LARYNX AND TRACHEA: Patent and normal. No prevertebral soft tissue swelling. SUPERFICIAL SOFT TISSUES: Normal. No lymphadenopathy or neck mass. THORACIC INLET/VISUALIZED UPPER CHEST: Soft tissue density seen anterior to the aortic arch and pulmo nary artery which may indicate pericardial effusion. Further evaluation advised. Ascending aorta finesse ures 3.8 cm. Device is seen in the left anterior chest. SKELETAL: Age appropriate degenerative changes. IMPRESSION: 1. Left maxillary sinus disease. 2. Retropharyngeal position of the right carotid artery. 3. Otherwise, Normal CT neck. Reviewed, dictated and finalized at location A.
--- OUTSIDE RECORDS SUMMARY | 2024-12-25 08:49 | XMS_ITS | Continuity of Care Document ---
Author Organization [facility] Address [address] [place] [address] [address] [place] [address] Phone Care Team Providers Care Electrical Appliance Preparer Name Role Phone [facility] Unavailable Unavail able Unavailable Unavailable Unavailable Advance Directives Directive Yes / No Effective Date File Name No Information Encounters Encounter Description Practice Location Reason(s) For Visit Diagnoses Date Provider Providers Copied on Encounter [facility], [address], [place], [place], [id number], [place] tel:[phone] [facility] No Information [facility] [address] [facility], [address], [place], [place], [address] , [place]. tel:[phone] Referring Provider: Mirta Reid, [address] [place] [address] , [place], [address]. tel:[phone] Family History Family Member Type Diagnosis Age [...]
[2024-12-25 08:52] LABS: Basophils Percent Auto 0.3 % (0.2-1.2); Eosinophils Absolute Auto 0.1 K/mm3 (0-0.3); Hematocrit 32.5 % (37.0-47.0); Hemoglobin 9.6 g/dL (12.0-15.0); Immature Granulocyte Absolute 0.06 K/mm3 (0.00-0.031); Immature Granulocyte Percent A 0.6 % (0-0.5); Lymphocytes Absolute Auto 1.33 K/mm3 (0.9-3.2); Lymphocytes Percent Auto 12.7 % (18.3-44.2); Mean Corpuscular HGB Conc 29.5 g/dl (32-36); Mean Corpuscular Hemoglobin 26.6 pg (26-34); Mean Platelet Volume 8.9 fl (7.4-10.4); Monocytes Absolute Auto 1.2 K/mm3 (0.1-0.6); Neutrophils Absolute Auto 7.8 K/mm3 (1.3-6.7); Neutrophils Percent Auto 74.4 % (45.5-73.1); Platelet Count Result 232 k/mm3 (150-375); Red Blood Count 3.61 M/mm3 (4.2-5.4); Red Cell Distribution Width 16.1 % (11.5-14.5); White Blood Count 10.5 K/mm3 (4.5-10.0)
--- OUTSIDE RECORDS SUMMARY | 2024-12-25 09:09 | XMS_ITS | Continuity of Care Document ---
Author Organization [facility] Address [address] [place] [address] [address] [place] [address] Phone Care Team Providers Care Warehouse Clerk Name Role Phone [facility] Unavailable Unavail able Unavailable Unavailable Unavailable Advance Directives Directive Yes / No Effective Date File Name No Information Encounters Encounter Description Practice Location Reason(s) For Visit Diagnoses Date Provider Providers Copied on Encounter [facility], [address], [place], [place], [address], [place] tel:[phone] [facility] No Information [facility] [address] [facility], [address], [place], [place], [address] , [place]. tel:[phone] Referring Provider: Mirta Reid, [address] [place] [address] , [place], [address]. tel:[phone] Family History Family Member Type Diagnosis Age At Onset No Information Payers Payer name Insurance type Covered republican ID Authoriza tion(s) No Information Social History [...]
[2024-12-25 09:13] LABS: Alanine Aminotransferase 24 U/L (6-35); Albumin Level 4.2 g/dL (3.5-5.1); Alkaline Phosphatase 74 U/L (38-126); Anion Gap 13 mmol/L (4-12); Aspartate Amino Transferase 29 U/L (14-36); Bilirubin,Total 0.2 mg/dL (0.2-1.3); Blood Urea Nitrogen 17 mg/dL (7-17); Calcium 9.3 mg/dL (8.4-10.2); Carbon Dioxide 22 mmol/L (22-30); Chloride 104 mmol/L (98-107); Estimated CRCL calculation 54 ml/min; Estimated Glomerular Filt Rate > 60; Glucose 113 mg/dL (65-110); Potassium 4.5 mmol/L (3.4-5.0); Sodium 139 mmol/L (137-145); Total Protein 7.3 g/dL (6.3-8.2)
[2024-12-25] MEDS: LORazepam INJ (*CRX) 2 MG/ML VIAL 0.5 MG IV PUSH (09:19)
[2024-12-25] MEDS: SODIUM CHLORIDE 0.9% IV 1,000 ML 999 ML IV CONT ×2 (09:20→10:44)
[2024-12-25 09:27] LABS: Platelet Estimate Adequate (Adequate); Schistocytes None Seen
[2024-12-25 10:39] LABS: Add Urine Microscopic? NO; Appearance Urine Clear (Clear); Bilirubin Urine Negative (Negative); Blood Urine Negative (Negative); Color Urine Yellow (Yellow); Glucose Urine UA Negative (Negative); Ketones Urine Negative (Negative); Leukocyte Esterase Ur Negative LEU/UL (Negative); Nitrate Urine Negative (Negative); Protein Urine Negative (Negative); Specific Grav Ur 1.023 (1.001-1.035); Urobilinogen Urine 0.2 mg/dL (<2.0)
--- NOTE | 2024-12-25 10:53 | ED.GENADULT ---
HPI - General Adult General Chief complaint: Dizziness Stated complaint: dizzy x 1 week Time Seen by Provider: 12/25/24 08:41 History of Present Illness HPI narrative: Patient is a 74-year-old female who presents ER with multiple complaints. Reports dizziness for 1 week. Worse when she stands up. Patient is currently having a panic attack in the ER. She reports she had 1 other day as well prior to getting a CT that was ordered for right-sided facial swelling. Has history of RA and lupus. No fevers or chills or sweats. No urinary frequency urgency or dysuria. No chest pain or chest pressure. Related Data Home Medications ?Medication ?Instructions ?Recorded ?Confirmed ?Last Taken ?Type aspirin 81 mg tablet 81 mg PO DAILY 05/09/20 12/11/24 07/23/24 History cetirizine 10 mg capsule (All Day 10 mg PO DAILY PRN allergy symptoms 07/04/24 12/11/24 Unknown History Allergy (cetirizine)) fluticasone propionate 50 1 spray intranasal DAILY 07/04/24 12/11/24 07/23/24 History mcg/actuation nasal spray,suspension prednisone 5 mg tablet 5 mg PO DAILY 07/04/24 12/11/24 07/02/24 History Allergies Allergy/AdvReac Type Severity Reaction Status Date / Time latex Allergy Intermediate hives and Verified 12/11/24 11:26 rash Penicillins AdvReac Unknown Nausea and Verified 12/11/24 11:26 Vomiting Sulfa (Sulfonamide AdvReac Unknown Nausea and Verified 12/11/24 11:26 Antibiotics) Vomiting sulfanilamide AdvReac Unknown Nausea and Verified 12/11/24 11:26 Vomiting Review of Systems Review of Systems: All systems reviewed & are unremarkable except as noted in HPI and below Constitutional: Constitutional: Reports no additional constitutional complaints ENT: Reports system reviewed and no additional complaints, except as documented Cardiovascular: Cardiovascular: Reports no additional cardiovascular complaints Respiratory: Respiratory: Reports no additional respiratory complaints Musculoskeletal: Musculoskeletal: Reports no additional musculoskeletal complaints [facility] Past Medical History Medical History Gastritis History of pancreatic cancer Lupus HTN (hypertension) Cardiomegaly Mixed connective tissue disease Rheumatoid arthritis Systemic lupus erythematosus Iron deficiency anemia Anxiety Chronic obstructive pulmonary disease Osteoporosis Sinus node dysfunction Status post pacemaker insertion in February 2019. Pancreatic cancer Status post Whipple procedure in 2014. Surgical History Surgical History History of cardiac catheterization (~09/2018) Performed after an abnormal stress test, showing minimal coronary irregularities. History of bilateral salpingo-oophorectomy (~1997) History of hysterectomy (~1986) History of cholecystectomy (~2014) History of cardiac pacemaker in situ (~02/2019) History of pancreatic surgery (~2014) Status post Whipple procedure. Family History Family History Mother Family history of malignant neoplasm of ovary Son Diabetes mellitus Grandparent Diabetes mellitus Son Multiple sclerosis Social History Social History Social History: Surrogate decision maker: Rafael Zaidi, spouse. Code status: Full code. Smoking status: Never smoker Second hand tobacco smoke exposure: Yes ( for many years) Alcohol intake: never Drinks per week: 2 Alcohol use details: rare Substance use: never Substance use type: does not use Do You Feel Safe in your Home?: Yes Lack of Transportation: No Lack of Food: Never True Concerned About Future Housing: Decline to Answer Difficulty Paying Gas/Electric Bills: Decline to Answer Difficulty Paying for Meds: Decline to Answer Currently Unemployed: Decline to Answer Difficulty w/ Childcare or Family Care: No Living arrangements: with family Additional living arrangements comments: Resides in [place] with her . She has 3 grown children. Occupation/Education: retired Additional occupation/education comments: Retired and on disability. Gender identity (if verbalized by the patient): Female Sexual Orientation (if Verbalized by the Patient): Straight or Heterosexual Spiritual care concerns: No Exam Narrative: GENERAL: Anxious-appearing, well-nourished, and having a panic attack. HEAD: Normocephalic, atraumatic. EYES: PERRL and EOMI. ENT: Mucous membranes moist. Subtle right-sided swelling of parotid. No tenderness. NECK: Supple. CHEST: Clear to auscultation. No respiratory distress. HEART: Regular rate and rhythm. Normal peripheral pulses. ABDOMEN: Soft, nontender, nondistended. EXTREMITIES: Normal range of motion. No edema. SKIN: Warm, dry, no rash. NEURO: Alert and oriented x3. Course Course Emergency Course: 1030: Anxiety improved with Ativan. Patient being hydrated. 1210: Patient informed of results. Feels improved with fluids. Appropriate for discharge. Has flonase at home. Will give meclizine. Vital Signs Vital signs: Vital Signs Temperature 97.8 F 12/25/24 08:46 Pulse Rate 82 12/25/24 08:46 Respiratory Rate 22 H 12/25/24 08:46 Blood Pressure 175/93 H 12/25/24 08:46 Pulse Oximetry 100 12/25/24 08:46 Oxygen Delivery Room Air 12/25/24 08:46 Temperature 97.8 F 12/25/24 08:46 Pulse Rate 61 12/25/24 11:48 Respiratory Rate 16 12/25/24 11:48 Blood Pressure 148/70 H 12/25/24 11:48 Pulse Oximetry 100 12/25/24 11:48 Oxygen Delivery Room Air 12/25/24 08:46 Medical Decision Making Vital Signs Vital Signs: Vital Signs Temperature 97.8 F 12/25/24 08:46 Pulse Rate 82 12/25/24 08:46 Respiratory Rate 22 H 12/25/24 08:46 Blood Pressure 175/93 H 12/25/24 08:46 Pulse Oximetry 100 12/25/24 08:46 Oxygen Delivery Room Air 12/25/24 08:46 Temperature 97.8 F 12/25/24 08:46 Pulse Rate 61 12/25/24 11:48 Respiratory Rate 16 12/25/24 11:48 Blood Pressure 148/70 H 12/25/24 11:48 Pulse Oximetry 100 12/25/24 11:48 Oxygen Delivery Room Air 12/25/24 08:46 Lab Data 12/25/24 08:47 12/25/24 08:47 Labs: Lab Results 12/25/24 12/25/24 Range/Units 08:47 10:31 WBC 10.5 H (4.5-10.0) K/mm3 RBC 3.61 L (4.2-5.4) M/mm3 Hgb 9.6 L (12.0-15.0) g/dL Hct 32.5 L (37.0-47.0) % MCV 90.0 (80-100) fl MCH 26.6 (26-34) pg MCHC 29.5 L (32-36) g/dl RDW 16.1 H (11.5-14.5) % Plt Count 232 (150-375) k/mm3 MPV 8.9 (7.4-10.4) fl Immature Gran % (Auto) 0.6 H (0-0.5) % Neut % (Auto) 74.4 H (45.5-73.1) % Lymph % (Auto) 12.7 L (18.3-44.2) % Mccracken % (Auto) 11.0 H (2.6-8.5) % Eos % (Auto) 1.0 (0-4.4) % Baso % (Auto) 0.3 (0.2-1.2) % Lymph # (Auto) 1.33 (0.9-3.2) K/mm3 Mccracken # (Auto) 1.2 H (0.1-0.6) K/mm3 Eos # (Auto) 0.1 (0-0.3) K/mm3 Baso # (Auto) 0.0 (0.0-0.1) K/mm3 Abs Immat Gran (auto) 0.06 H (0.00-0.031) K/mm3 Absolute Neuts (auto) 7.8 H (1.3-6.7) K/mm3 Absolute Nucleated RBC 0.000 (0.0-0.012) K/mm3 Band Neutrophils % Not Reportable Nucleated RBC % 0.0 (0.0-0.2) % Platelet Estimate Adequate (Adequate) Schistocytes None seen Sodium 139 (137-145) mmol/L Potassium 4.5 (3.4-5.0) mmol/L Chloride 104 (98-107) mmol/L Carbon Dioxide 22 (22-30) mmol/L Anion Gap 13 H (4-12) mmol/L BUN 17 (7-17) mg/dL Creatinine 0.59 L (0.7-1.0) mg/dL Estim Creat Clear Calc 54 ml/min Estimated GFR > 60 (59 - ) Glucose 113 H (65-110) mg/dL Calcium 9.3 (8.4-10.2) mg/dL Total Bilirubin 0.2 (0.2-1.3) mg/dL AST 29 (14-36) U/L ALT 24 (6-35) U/L Alkaline Phosphatase 74 (38-126) U/L Total Protein 7.3 (6.3-8.2) g/dL Albumin 4.2 (3.5-5.1) g/dL Urine Color Yellow (Yellow) Urine Appearance Clear (Clear) Urine pH 7.0 (5.0-9.0) Ur Specific Law[place] 1.023 (1.001-1.035) Urine Protein Negative (Negative) mg/dL Urine Glucose (UA) Negative (Negative) mg/dL Urine Ketones Negative (Negative) mg/dL Ur Blood (Man) Negative (Negative) Urine Nitrate Negative (Negative) Urine Bilirubin Negative (Negative) Urine Urobilinogen 0.2 (<2.0) mg/dL Leukocyte Esterase Rfl Negative (Negative) HERNAN/UL Imaging Data Radiologist's impression: ITS Impressions Head CT 12/25/24 10:24 IMPRESSION: No acute intracranial findings. Soft Tissue Neck CT 12/25/24 10:35 IMPRESSION: 1. Left maxillary sinus disease. 2. Retropharyngeal position of the right carotid artery. 3. Otherwise, Normal CT neck. Discharge Plan Discharge Clinical Impression: Maxillary sinusitis, Dizziness Patient Disposition: Home Condition: Stable Instructions: Sinusitis (ED), Vertigo (ED) Additional Instructions: Follow-up with your primary care doctor for further treatment evaluation. Return the ER if you lose consciousness, or you have additional concerns. Patient Language: Georgian Prescriptions: New meclizine 25 mg tablet 25 mg PO TID PRN (Reason: dizziness) Qty: 20 0RF No Action Trelegy Ellipta 100-62.5-25 mcg blister with device See Rx Instructions .ROUTE .COMPLEX Qty: 60 5RF Dose Instruction: INHALE 1 PUFF BY MOUTH ONCE DAILY Rx Instructions: INHALE 1 PUFF BY MOUTH ONCE DAILY amlodipine 5 mg tablet 5 mg PO DAILY Qty: 30 5RF aspirin 81 mg Tablet 81 mg PO DAILY prednisone 5 mg tablet 5 mg PO DAILY fluticasone propionate 50 mcg/actuation spray,suspension 1 spray INTRANASAL DAILY All Day Allergy (cetirizine) 10 mg capsule 10 mg PO DAILY PRN (Reason: allergy symptoms) citalopram 40 mg tablet 40 mg PO HS Qty: 90 3RF buspirone 7.5 mg tablet 7.5 mg PO TID Qty: 270 3RF hydrocodone-acetaminophen 5-325 mg tablet 1 tablet PO Q8H PRN (Reason: pain) Qty: 21 0RF albuterol sulfate 90 mcg/actuation HFA aerosol inhaler See Rx Instructions .ROUTE .COMPLEX Qty: 6.7 2RF Dose Instruction: INHALE 2 PUFFS BY MOUTH EVERY 4 HOURS NEEDED FOR FOR SHORTNESS OF BREATH OR WHEEZING Rx Instructions: INHALE 2 PUFFS BY MOUTH EVERY 4 HOURS NEEDED FOR FOR SHORTNESS OF BREATH OR WHEEZING Zenpep 25,000-79,000- 105,000 unit capsule,delayed release(DR/EC) 1 cap PO QID Qty: 300 12RF Rx Instructions: administer with meals and/or snacks ondansetron 4 mg tablet,disintegrating See Rx Instructions .ROUTE .COMPLEX Qty: 60 0RF Dose Instruction: DISSOLVE ONE TO TWO TABLETS BY MOUTH EVERY 8 HOURS NEEDED FOR NAUSEA AND VOMITING Rx Instructions: DISSOLVE ONE TO TWO TABLETS BY MOUTH EVERY 8 HOURS NEEDED FOR NAUSEA AND VOMITING lorazepam [Ativan] 0.5 mg tablet See Rx Instructions .ROUTE .COMPLEX Qty: 2 0RF Rx Instructions: take 1 po 1 hr prn to scan, may repeat at time of scan if needed Follow-up/Referrals: Jordan Hayward MD [Primary Care Provider] - 1 Week
== END 2024-12-25 12:22 | disposition home or self-care (01) ==
PROVIDERS: Emergency Provider Emergency Medicine; PCP Family Medicine
DX: J32.0 Chronic maxillary sinusitis (principal); R42 Dizziness and giddiness; Z85.07 Personal history of malignant neoplasm of pancreas; M32.9 Systemic lupus erythematosus, unspecified; I10 Essential (primary) hypertension; J44.9 Chronic obstructive pulmonary disease, unspecified; M81.0 Age-related osteoporosis without current pathological fracture; Z95.0 Presence of cardiac pacemaker
CPT/HCPCS: 36415; 70450; 70491; 80053; 81003; 85025; 96361; 96374; 99284; J2060; J7030; Q9967

== ENCOUNTER 2025-01-07 07:15 | Outpatient (CLI) | payer MEDICARE, SELFPAY ==
--- NOTE | ~2025-01-07 | US_ITS ---
EXAMINATION: US carotid duplex BI DATE: 01/07/2025 18:36 CDT INDICATION: Vertigo and vision abnormality TECHNIQUE: Grayscale, color Doppler, and pulsed Doppler images of the cervical carotid arteries were obtained. The degree of vessel stenosis is placed in one of the following categories: normal, <50%, 50-69%, >=7 0% but less than near-occlusion, near-occlusion, or total occlusion. Note that percent stenosis relative to normal distal artery lumen diameter is indirectly measured fro m velocity measurements as described originally by Ben, et al. Radiology 2003; 229:340-346 and upda letty by Stephen Morejon et al STROKE 2012;43(3);915-921. COMPARISON: 05/11/2020 FINDINGS: There is mild atherosclerosis of both carotid arteries. Peak systolic velocity (in cm/s) is detailed below RIGHT: Right common carotid artery (CCA): 75 cm/s. Right internal carotid artery (ICA) PSV: 63 cm/s. Right ICA end-diastolic velocity (EDV): 23 cm/s. Right ICA/CCA PSV ratio is 1.1. Right external carotid artery (ECA): 90cm/s. There is antegrade flow in the right vertebral artery LEFT: Left common carotid artery (CCA): 63 cm/s. Left internal carotid artery (ICA) PSV: 76 cm/s. Left ICA end-diastolic velocity (EDV): 29 cm/s. Left ICA/CCA PSV ratio is 1.7. Left external carotid artery (ECA): 63cm/s. There is antegrade flow in the left vertebral artery. IMPRESSION: 1. Less than 50% stenosis in the right internal carotid artery. 2. Less than 50% stenosis in the left internal carotid artery. Reviewed, dictated and finalized at location A.
--- OUTSIDE RECORDS SUMMARY | 2025-01-07 07:19 | XMS_ITS | Continuity of Care Document ---
Author Organization [facility] Address [address] [place] [address] Phone Care Team Providers Care Facsimile Operator Name Role Phone [facility] Unavailable Unavail able Unavailable Unavailable Unavailable Advance Directives Directive Yes / No Effective Date File Name No Information Encounters Encounter Description Practice Location Reason(s) For Visit Diagnoses Date Provider Providers Copied on Encounter [facility], [address], [place], [place], [id number], [place] tel:[phone] [facility] No Information [facility] [address], [address], [place], [place], [id number] , [place]. tel:[phone] Referring Provider: Mirta Redi, [address] [place] [address] , [place], [address]. tel:[phone] Family History Family Member Type Diagnosis Age At Onset No Information Payers Payer name Insurance type Covered democrat ID Authoriza tion(s) No Information Social History [...]
--- OUTSIDE RECORDS SUMMARY | 2025-01-07 07:19 | XMS_ITS | Clinical Summary ---
Author Organization [facility] Address [address] [place] [address] Care Team Providers Care Coding Validator Name Role Phone Jordan Hayward MD Primary Care Provider [phone] Allergies Active Allergy Reactions Criticality Noted Date [...] 12:15 PM CDT Height 157.5 cm (5' 2) 03/24/2018 12:15 PM CDT Body Mass Index 21.05 03/24/2018 12:15 PM CDT Plan of Treatment Health Maintenance Due Date Last Done Comments Colorectal Cancer Screening Colonoscopy (10 Years) 1950 Hepatitis C 09/12/1969 DTaP, Tdap and Td Vaccines ( 1 - Tdap) 09/12/1970 Mammogram Screening 1991 Pneumococcal Vaccine: 50+ Ye ars (1 of 1 - PCV) 09/12/2001 Zoster Vaccines (1 of 2) 09/12/2001 Dexa Scan (General) 09/12/2016 COVID-19 Vaccine ( - 2023-2 5 season) 2024 RSV Immunization or 60+ Years (1 [...] age to complete this topic Care Teams Coding Validator Relationship Specialty Start Date End Date Jordan Hayward MD [address] [place] [address] PCP - General FAMILY PRACTICE 03/24/18
== END 2025-01-07 07:16 | disposition home or self-care (01) ==
PROVIDERS: PCP Family Medicine
DX: I65.23 Occlusion and stenosis of bilateral carotid arteries (principal)
CPT/HCPCS: 93880

== ENCOUNTER 2025-01-15 07:49 | Outpatient (CLI) | payer MEDICARE, SELFPAY ==
--- NOTE | ~2025-01-15 | CT_ITS ---
CT of the Abdomen and Pelvis: Indication: Abdominal tenderness Technique: 2.5 mm axial scans were obtained through the abdomen and pelvis following intravenous adm inistration of 100 cc of Omnipaque 350. Dose reduction technique was used on this scan by utilizing a utomated exposure control and iterative reconstruction technique. The dose-length product (DLP) was 1 69.07 mGy-cm. COMPARISON: 09/20/2024, 06/14/2024 Findings: Scans through the lung bases are unremarkable. The liver, spleen, pancreas, gallbladder, adrenals and kidneys are within normal limits. No evidence of aortic aneurysm. No lymphadenopathy. No bowel obstruction or bowel wall thickening. There is no evidence to suggest acute appendicitis. Images through the pelvis were performed. Urinary bladder unremarkable. No pelvic mass seen. Prior hy sterectomy. No ascites. Stable T12 compression fracture deformity. Impression: No acute abnormality. Stable T12 compression deformity. Reviewed, dictated and finalized at [facility]. Impression: No acute abnormality. Stable T12 compression deformity.
--- OUTSIDE RECORDS SUMMARY | 2025-01-15 07:54 | XMS_ITS | Continuity of Care Document ---
Author Organization [facility] Address [address] [place] [address] Phone Care Team Providers Care Power Shovel Operator Name Role Phone [facility] Unavailable Unavail able Unavailable Unavailable Unavailable Advance Directives Directive Yes / No Effective Date File Name No Information Encounters Encounter Description Practice Location Reason(s) For Visit Diagnoses Date Provider Providers Copied on Encounter [facility], [address], [place], [place], [id number], [place] tel:[phone] [facility] No Information [facility] [address], [address], [place], [place], [address] , [place]. tel:[phone] Referring Provider: Mirta Reid, [address] [place] [address] , [place], [address]. tel:[phone] Family History Family Member Type Diagnosis Age [...]
--- OUTSIDE RECORDS SUMMARY | 2025-01-15 07:54 | XMS_ITS | Clinical Summary ---
Author Organization [facility] Address [address] [place] [address] Care Team Providers Care Oil Heat Technician Name Role Phone Jordan Hayward MD Primary Care Provider [phone] Allergies Active Allergy Reactions Criticality Noted Date [...] age to complete this topic Care Teams Oil Heat Technician Relationship Specialty Start Date End Date Jordan Hayward MD [address] [place] [address] PCP - General FAMILY PRACTICE 03/24/18
== END 2025-01-15 07:50 | disposition home or self-care (01) ==
PROVIDERS: PCP Family Medicine; Visit Provider Nurse Practitioner
DX: M43.8X4 Other specified deforming dorsopathies, thoracic region (principal); R10.819 Abdominal tenderness, unspecified site; R10.813 Right lower quadrant abdominal tenderness
CPT/HCPCS: 74177; Q9967

== ENCOUNTER 2025-02-12 09:36 | Outpatient (CLI) | payer MEDICARE, SELFPAY ==
--- NOTE | 2025-02-12 10:02 | ECHO_ITS ---
Patient Info Name: Jaki Zaidi Age: 74 years : 1950 Gender: Female Ht: 62 in Wt: 104 lbs BSA: 1.43 m2 HR: 57 bpm BP: 149 / 94 mmHg Heart Rhythm: Sinus Rhythm Technical Quality: Good Exam Date: 02/12/2025 10:08 AM Patient Status: O Admit Date: 02/12/2025 Exam Type: CA echo doppler w bubble study Complete two-dimensional, color flow and Doppler transthoracic echocardiogram is performed with agitated saline. Bleach Boiler Packer: Carrie Serrato Attending Provider: Debra Cornejo Contrast/Agitated Saline Contrast/Ag. Saline: Agitated Saline Amount: 20.00 ml Summary 1. Normal left ventricular and right ventricular size and systolic function. 2. Mildly sclerotic aortic valve with [id number] AI. 3. Pacemaker lead noted in the right ventricle. 4. Agitated saline contrast injection is negative for intracardiac shunt. Left Ventricle Left ventricular chamber dimension is normal. Left ventricular systolic function is normal, estimated at 55-60. The left ventricular diastolic function is grade I diastolic dysfunction. Right Ventricle Right ventricular chamber dimension is normal. Linear artifact in right ventricle suggestive of catheter(s), pacemaker lead(s), or ICD lead(s). Left Atria Left atrial chamber dimension is normal. Right Atria Right atrial chamber dimension is normal. Atrial Septum Intact interatrial septum visualized by agitated saline imaging. Aortic Valve The aortic valve is trileaflet. There is mild aortic valve sclerosis. There is mild to moderate aortic valve regurgitation. Pulmonic Valve The pulmonic valve is not well visualized. Mitral Valve The mitral valve has normal leaflets. There is mild mitral valve regurgitation. Tricuspid Valve The tricuspid valve leaflets are normal. There is trace tricuspid valve regurgitation. Pericardium/Pleural The pericardium appears normal. Aorta The aortic root size at the sinus of Valsalva is normal. Left Ventricular Outflow Tract Name Value Normal LVOT 2D LVOT Diameter 1.9 cm LVOT Doppler LVOT Peak Velocity 87 cm/s LVOT Peak Gradient 3 mmHg LVOT Mean Gradient 2 mmHg LVOT VTI 23 cm LVOT Stroke Volume 63 ml LVOT CO 3.6 l/min LVOT CI 2.5 l/min/m2 Pulmonic Valve Name Value Normal RVOT Doppler RVOT Peak Velocity 52 cm/s RVOT Peak Gradient 1 mmHg PV Doppler PV Peak Velocity 62 cm/s PV Peak Gradient 2 mmHg Mitral Valve Name Value Normal MV Diastolic Function MV E Peak Velocity 43 cm/s MV A Peak Velocity 55 cm/s MV E/A 0.8 MV Decel Time (PW) 134 ms MV Annular TDI MV E/e' (Septal) 5.3 MV E/e' (Lateral) 4.9 MV E/e' (Average) 5.1 Tricuspid Valve Name Value Normal TV Regurgitation Doppler TR Peak Velocity 299 cm/s TR Peak Gradient 36 mmHg Aortic Valve Name Value Normal AV Doppler AV Peak Velocity 135 cm/s AV Peak Gradient 7 mmHg AV Area (Cont Eq José) 1.8 cm2 AV DI (José) 0.65 AV Regurgitation 2D LVOT Area 2.8 cm2 Ventricles Name Value Normal LV Dimensions 2D/MM IVS Diastolic Thickness (2D) 0.8 cm 0.6-1.0 LVID Diastole (2D) 4.7 cm 3.8-5.2 LVIW Diastolic Thickness (2D) 0.8 cm 0.6-0.9 LVID Systole (2D) 3.4 cm 2.2-3.5 LVOT Diameter 1.9 cm LV Mass (2D Cubed) 124.34 g 67.00-162.00 LV Mass Index (2D Cubed) 87 g/m2 43-95 Relative Wall Thickness (2D) 0.34 <=0.42 LV Fractional Shortening/Ejection Fraction 2D/MM LV Fractional Shortening (2D) 29 % 27-45 LV EF (2D Teichholz) 56 % LV Diastolic Volume (4C MOD) 76 ml LV EF (4C MOD) 54 % LV Diastolic Volume (2C MOD) 69 ml LV EF (2C MOD) 54 % LV Diastolic Volume (BP MOD) 74 ml 46-106 LV Diastolic Volume Index (BP MOD) 52 ml/m2 29-61 LV Systolic Volume (BP MOD) 33 ml 14-42 LV Systolic Volume Index (BP MOD) 23 ml/m2 8-24 LV EF (BP MOD) 55 % 54-74 LV Diastolic Length (4C) 6.8 cm LV Systolic Length (4C) 6.4 cm LV Stroke Volume (4C MOD) 41 ml Atria Name Value Normal LA Dimensions LA Volume (4C A-L) 44 ml LA Volume (BP A-L) 47 ml RA Dimensions RA Systolic Major Grabill Length (4C) 4.5 cm 2.2-2.8 RA Area (4C) 10.4 cm2 <=18.0 Report Signatures Amended by Doc Geronimo MD on 03/04/2025 11:11 AM Amended by Doc Geronimo MD on 03/04/2025 11:10 AM Amended by Doc Geronimo MD on 03/04/2025 11:09 AM
--- OUTSIDE RECORDS SUMMARY | 2025-02-12 10:05 | XMS_ITS | Patient Health Record ---
Author Organization [facility] [employer] Address [address] [address] Support Name Relationship Address Phone NATHANAEL LEHMAN Guarantor Unknown [phone] Reason For Referral No Information Plan Of Treatment No Information
== END 2025-02-12 09:37 | disposition home or self-care (01) ==
LOC: ANHCARD 09:40
PROVIDERS: PCP Family Medicine
DX: I35.8 Other nonrheumatic aortic valve disorders (principal); R47.1 Dysarthria and anarthria; R42 Dizziness and giddiness; I63.9 Cerebral infarction, unspecified
CPT/HCPCS: 93306; 96375

== ENCOUNTER 2025-03-17 11:00 | Outpatient (RCR) | payer MEDICARE, SELFPAY ==
--- NOTE | 2025-02-12 16:43 | OPREHPOC ---
Outpatient Therapy Plan of Care This is a Multidisciplinary Plan of Care that may contain components documented by all disciplines (PT, OT, and ST.) PT Problem 1 PT Problem #1 Knowledge Deficit PT Goal 1 Goal / Goal Update *independent with HEP Target Visit 8 PT Problem 2 PT Problem #2 Impaired Strength PT Goal 1 Goal / Goal Update increase strength of LE's to improve mobility and gait skills: 1* gross strength of both LE's 4+/5 2* sitting L ankle circles with good control x 20 reps 3* gait with bilateral knee extension with stance phase Target Visit 8 PT Problem 3 PT Problem #3 Impaired Functional Mobility PT Goal 1 Goal / Goal Update 1* 5 reps sit/stand time of 20 seconds, without use of UE's 2* 2 minute walking test distance of 350', without cane 3* Tinetti balance/gait score of 28/28 Target Visit 8
--- NOTE | 2025-02-12 16:44 | PTOPEVAL1 ---
Assessment and note entered by Ania Burnham PT Evaluation Information Assessment Status Evaluation ICD-10 Condition Codes (PT) Difficulty Walking R26.2,Abnormalities of gait and mobility R26.9,Weakness R53.1,Dizziness and Giddiness R42 Onset beginning of December 2024 Subjective Information started having dizziness, after about 1 week, went to ER; have not had any falls in ER was told sinus issues and vertigo, ? CVA; to have brain MRI next week; have started using a cane since vertigo and not going into the basement; am not driving; have meclazine, but it does not help the symptoms activity: retired, do not use assistive device; independent with self care and light home tasks; does not do regular fitness activity; home with , full flight stairs to basement; symptoms: head tingling; tongue and lips are numb; teeth feel loose; have seen dentist and was told everything was OK; shuffle when walk, blurriness of vision; do see eye dr every 6 months due to lupus; Reported Pain Level Pain Score 4: Self Report Additional Pain Score Comments overall, generalized pain: abdomen most painful area Assessment PT Clinical Summary Janett has the diagnosis of dizziness, unsteady on feet. Onset in December, with dizziness and to ER was told she had a CVA. Prior to December, she did not use a cane and walked in community without any issues. Dizziness Handicap Index rating of 68. present during eval and supportive to pt. She has not had any falls. And is not going into her basement. She is motivate and anxious to get stronger and walk better. Medical history includes: pancreatic cancer with Whipple procedure, systemic lupus, RA, neuropathy in LE's, pacemaker and osteoporosis. With the evaluation: she has decreased motor control with L ankle circles; using a cane for 2 minute walking distance of 270'; 5 reps sit/stand time of 28 seconds without use of UE's; Tinetti balance/gait score of 15/28; Skilled PT services are indicated for therapeutic exercises and activities to increase LE strength, gait and balance skills; monitor dizziness, but feel it is from her CVA, with education for HEP and safety with mobility. Plan of Care Interventions Gait Training,Neuro Re-education,Patient/Caregiver Education,Therapeutic Activities,Therapeutic Exercise PT Services Indicated Yes Treatment Frequency and 1-2x/wk for 8 visits Duration These treatments will address the objective and functional deficits as defined above. The patient will be advanced safely and appropriately in order for the patient to progress towards his/her prior level of function. Additional exercises will be introduced and as well as a comprehensive home exercise program upon discharge, if needed, ?to ensure carryover of functional gains achieved in the clinic. This treatment plan has been reviewed and agreement upon by the patient.
--- NOTE | 2025-02-27 15:30 | STOPEVAL1 ---
Assessment and note entered by Gracie Nur, OUTSIDE SALES ENGINEER Reported Pain Level Pain Score 3: Self Report Pain Score 0: Self Report Assessment ST Clinical Summary The patient is a 74 year old female referred for a outpatient speech evaluation due to noted concerns for dysarthria following a recent CVA. The patient states she has been having difficulty with intelligibility since her onset of oral pain, approximately 3 months but that it has changed since recent CVA, she feels her oral motor structures are not aligned and she is experiencing labial and lingual numbness. The patient was given the [place] Dysarthria Assessment Repetition 97/100, Word fluency 12/15, Sentence Completion 10/10 and Responsive naming 10/. Specific sounds with intermittent error /s/, /s/ blends. Overall Score 129/135 The patient demonstrates limited labial opening when speaking and some clinching of her jaws which is impacting overall intelligibility and maybe secondary to her reported oral pain. Recommend: Speech services 1x week x 4 visits to establish speech strategies and exercises for improved articulation and intelligibility in general conversation. Plan of Care Interventions Treatment of Speech ST Services Indicated Yes These treatments will address the objective and functional deficits as defined above. The patient will be advanced safely and appropriately in order for the patient to progress towards his/her prior level of function. Additional exercises will be introduced and as well as a comprehensive home exercise program upon discharge, if needed, ?to ensure carryover of functional gains achieved in the clinic. This treatment plan has been reviewed and agreement upon by the patient.
--- NOTE | 2025-02-27 15:31 | OPREHPOC ---
Outpatient Therapy Plan of Care This is a Multidisciplinary Plan of Care that may contain components documented by all disciplines (PT, OT, and ST.) PT Problem 1 PT Problem #1 Knowledge Deficit PT Goal 1 Goal / Goal Update *independent with HEP Target Visit 8 PT Problem 2 PT Problem #2 Impaired Strength PT Goal 1 Goal / Goal Update increase strength of LE's to improve mobility and gait skills: 1* gross strength of both LE's 4+/5 2* sitting L ankle circles with good control x 20 reps 3* gait with bilateral knee extension with stance phase Target Visit 8 PT Problem 3 PT Problem #3 Impaired Functional Mobility PT Goal 1 Goal / Goal Update 1* 5 reps sit/stand time of 20 seconds, without use of UE's 2* 2 minute walking test distance of 350', without cane 3* Tinetti balance/gait score of 28/[address] Problem #[address] Goal 1 Goal / Goal Update The patient will participate in home programming to improve carry over/generalization of skills to the home environment. Target Visit [address] Problem #[address] Goal 1 Goal / Goal Update Dysarthria/Intelligibility: 1. The patient will use compensatory speech strategies (over articulation) to produce sentence length information 90% intelligible. 2. The patient will produce fricatives blends /s/ and /sh/ with 90% intelligibility 3. the patient will produced conversation speech with use of compensatory techniques 90% intelligible. 4. The patient will be compliant with HEP 90% Target Visit 10
--- NOTE | 2025-03-14 10:36 | PCSTNOTE ---
Patient called & cancelled scheduled appointment this date due to patient receiving treatment with PT became ill requesting canceling ST to go home.
--- NOTE | 2025-03-17 10:45 | OPREHPOC ---
Outpatient Therapy Plan of Care This is a Multidisciplinary Plan of Care that may contain components documented by all disciplines (PT, OT, and ST.) PT Problem 1 PT Problem #1 Knowledge Deficit PT Goal 1 Goal / Goal Update *independent with HEP 03-17-25 d/c goal met Target Visit 8 Progress Met PT Problem 2 PT Problem #2 Impaired Strength PT Goal 1 Goal / Goal Update increase strength of LE's to improve mobility and gait skills: 1* gross strength of both LE's 4+/5 2* sitting L ankle circles with good control x 20 reps 3* gait with bilateral knee extension with stance phase 03-17-25 d/c goals 1,3 met Target Visit 8 Progress Partially Met PT Problem 3 PT Problem #3 Impaired Functional Mobility PT Goal 1 Goal / Goal Update 1* 5 reps sit/stand time of 20 seconds, without use of UE's 2* 2 minute walking test distance of 350', without cane 3* Tinetti balance/gait score of 28/28 03-17-25 d/c goals not met; #1 is 25; #2 is 200'; #3 is 25/28 Target Visit [address] Problem 1 ST Problem #[address] Goal 1 Goal / Goal Update The patient will participate in home programming to improve carry over/generalization of skills to the home environment. Target Visit [address] Problem #[address] Goal 1 Goal / Goal Update Dysarthria/Intelligibility: 1. The patient will use compensatory speech strategies (over articulation) to produce sentence length information 90% intelligible. 2. The patient will produce fricatives blends /s/ and /sh/ with 90% intelligiblity 3. the patietn will produced conversation speech with use of compensatory techniques 90% intelligible. 4. The patient will be compliant with HEP 90% Target Visit 10
--- NOTE | 2025-03-17 10:45 | PTOPDC ---
Assessment and note entered by Ania Burnham, PT Assessment Status Discharge ICD-10 Condition Codes (PT) Difficulty Walking R26.2,Abnormalities of gait and mobility R26.9,Weakness R53.1,Dizziness and Giddiness R42 Onset beginning of December 2024 Subjective Information have not had any falls since coming for therapy; feel like getting around a little better; was able to walk at the park, over gravel to get to [employer] game; have been out shopping with her , did ok pushing the cart and was tired when she got home; still have dizziness and room spinning, off balance and have to sit down; and having double vision; do not use the cane in the house, use the cane when go out; have been doing the exercises at home; want to stop therapy for now. going to the neurologist in May. Reported Pain Level Pain Score 3: Self Report Additional Pain Score Comments low back pain and into L hip--RA pain Assessment PT Clinical Summary Janett has received 8 PT sessions. With today's assessment: she continues to have dizziness, but has good awareness of safety and has not had any falls; gross strength of R and L hip and knee 4+/5 and ankle 4-/5; 5 reps sit/ stand time of 25 seconds, without use of UE's; 2 minute walking test distance of 200' with cane; Tinetti balance/gait score of 25/28= low risk for falls; Dizziness Handicap index rating of 70% limitation in activity level; good gait pattern with the cane and is walking out in the community; education for home exercises and safety with mobility. The goals were partially achieved. Discharge PT. She is to continue with HEP and walking as tolerated. Plan of Care PT Services Indicated No
--- NOTE | 2025-03-17 11:19 | STOPDC ---
Assessment and note entered by Gracie Nur PROCEDURE TECH Evaluation Information Assessment Status Discharge Assessment Status Discharge Reported Pain Level Pain Score 0: Self Report Pain Score 3: Self Report Additional Pain Score Comments low back pain and into L hip--RA pain Assessment ST Clinical Summary The patient is a 74 year old female referred for a outpatient speech evaluation due to noted concerns for dysarthria following a recent CVA. The patient states she has been having difficulty with intelligibility since her onset of oral pain, approximately 3 months but that it has changed since recent CVA, she feels her oral motor structures are not aligned and she is experiencing labial and lingual numbness. The patient was given the [place] Dysarthria Assessment Repetition 97/100, Word fluency 12/15, Sentence Completion 10/10 and Responsive naming /10. Specific sounds with intermittent error /s/, /s/ blends. Overall Score 129/135 The patient demonstrates limited labial opening when speaking and some clinching of her jaws which is impacting overall intelligibility and maybe secondary to her reported oral pain. Recommend: Speech services 1x week x 4 visits to establish speech strategies and exercises for improved articulation and intelligibility in general conversation. 03/17/25 Update: The patient has achieved all goals and is able to compensate for with /s/ production at 90% intelligible at sentence, phrase and conversation level. No further speech services indicated. Discharge 03/17/25. Plan of Care ST Services Indicated No
== END 2025-03-17 12:38 | disposition home or self-care (01) ==
LOC: ANHST 11:00
PROVIDERS: PCP Family Medicine
DX: R47.1 Dysarthria and anarthria (principal); R20.0 Anesthesia of skin; K11.7 Disturbances of salivary secretion
CPT/HCPCS: 92507; 92522; 97110; 97112; 97116; 97161; 97530